=== PATIENT | male | born 1970 | race Caucasian/White ===

== ENCOUNTER 2021-10-08 11:00 | Emergency (ER) | payer SELFPAY ==
[2021-10-08 11:07] VITALS: PULSE 100; RESP 18; TEMP 37.1; O2SAT 97; BMI 31.4
--- NOTE | 2021-10-08 11:30 | CTR_ITS ---
PROCEDURE INFORMATION: Exam: CT Head Without Contrast Exam date and time: 10/08/2021 11:59 AM Age: 51 years old Clinical indication: Dizziness; Additional info: Light-headedness, diplopia TECHNIQUE: Imaging protocol: Computed tomography of the head without contrast. Radiation optimization: All CT scans at this facility use at least one of these dose optimization techniques: automated exposure control; mA and/or kV adjustment per patient size (includes targeted exams where dose is matched to clinical indication); or iterative reconstruction. COMPARISON: No relevant prior studies available. RADIATION DOSE METRICS: Total DLP (mGy-cm): 878.53 FINDINGS: Brain: No intracranial hemorrhage, edema or other acute abnormalities are seen in the brain. There is mild chronic atrophy with prominence of the ventricles and sulci. There is no mass effect or midline shift. Cerebral ventricles: There is mild ventricular prominence due to chronic atrophy. Paranasal sinuses: There is scattered mild mucosal thickening in the ethmoid sinuses. Mastoid air cells: Visualized mastoid air cells are well aerated. Bones/joints: Unremarkable. No acute fracture. Soft tissues: Unremarkable. CT/CT head wo con* [id number] IMPRESSION: No acute intracranial abnormality.
--- NOTE | 2021-10-08 11:30 | CTR_ITS ---
PROCEDURE INFORMATION: Exam: CT Angiography Head With Contrast, Arteriography Exam date and time: 10/08/2021 12:02 PM Age: 51 years old Clinical indication: Dizziness and giddiness; Additional info: Diplopia, light-headedness TECHNIQUE: Imaging protocol: Computed tomography angiography of the head with contrast. Exam focused on the arteries. 3D rendering (Not supervised by radiologist): MIP and/or 3D reconstructed images were created by the technologist. Radiation optimization: All CT scans at this facility use at least one of these dose optimization techniques: automated exposure control; mA and/or kV adjustment per patient size (includes targeted exams where dose is matched to clinical indication); or iterative reconstruction. Contrast material: OMNI 350; Contrast volume: 95 ml; Contrast route: INTRAVENOUS (IV); COMPARISON: CT head wo con* [id number] 10/08/2021 11:59 AM RADIATION DOSE METRICS: Total DLP (mGy-cm): 2381.55 FINDINGS: ANTERIOR CIRCULATION: Right internal carotid artery: Unremarkable. Intracranial segment is patent with no significant stenosis. No aneurysm. Right middle cerebral artery: Unremarkable. No occlusion or significant stenosis. No aneurysm. Right anterior cerebral artery: Unremarkable. No occlusion or significant stenosis. No aneurysm. Left internal carotid artery: Unremarkable. Intracranial segment is patent with no significant stenosis. No aneurysm. Left middle cerebral artery: Unremarkable. No occlusion or significant stenosis. No aneurysm. Left anterior cerebral artery: Unremarkable. No occlusion or significant stenosis. No aneurysm. POSTERIOR CIRCULATION: Right vertebral artery: Unremarkable. No occlusion or significant stenosis. No aneurysm. Left vertebral artery: Unremarkable. No occlusion or significant stenosis. No aneurysm. Basilar artery: Unremarkable. No occlusion or significant stenosis. No aneurysm. Right posterior cerebral artery: Unremarkable. No occlusion or significant stenosis. No aneurysm. Left posterior cerebral artery: Unremarkable. No occlusion or significant stenosis. No aneurysm. Brain: No definite mass, mass effect, or midline shift. Cerebral ventricles: No ventriculomegaly. Bones/joints: Unremarkable. No acute fracture. Soft tissues: Unremarkable. PROCEDURE INFORMATION: Exam: CT Angiography Neck With Contrast Exam date and time: 10/08/2021 12:02 PM Age: 51 years old Clinical indication: Dizziness and giddiness; Additional info: Diplopia, light-headedness TECHNIQUE: Imaging protocol: Computed tomography angiography of the neck with contrast. 3D rendering (Not supervised by radiologist): MIP and/or 3D reconstructed images were created by the technologist. Radiation optimization: All CT scans at this facility use at least one of these dose optimization techniques: automated exposure control; mA and/or kV adjustment per patient size (includes targeted exams where dose is matched to clinical indication); or iterative reconstruction. Contrast material: OMNI 350; Contrast volume: 95 ml; Contrast route: INTRAVENOUS (IV); COMPARISON: CT head wo con* [id number] 10/08/2021 11:59 AM RADIATION DOSE METRICS: Total DLP (mGy-cm): 2381.55 FINDINGS: Right common carotid artery: No stenosis. No dissection or occlusion. Right internal carotid artery: No stenosis of the extracranial segment. No dissection or occlusion. Right external carotid artery: No occlusion or stenosis of the origin. Left common carotid artery: No stenosis. No dissection or occlusion. Left internal carotid artery: No stenosis of the extracranial segment. No dissection or occlusion. Left external carotid artery: No occlusion or stenosis of the origin. Right vertebral artery: No stenosis. No dissection or occlusion. Left vertebral artery: No stenosis. No dissection or occlusion. Paranasal sinuses: There are multiple retention cysts in the maxillary sinuses and mucosal thickening. Thyroid: There are numerous nodules in the thyroid gland measuring up to 2.7 cm in the lower pole of the left lobe. Soft tissues: Normal. No significant soft tissue swelling. Bones/joints: No acute fracture. CT/CT angio headneck* [id number] IMPRESSION: No large vessel stenosis or occlusion. IMPRESSION: 1. No evidence of arterial stenosis or occlusion in the neck. 2. There are numerous thyroid nodules with the largest being 2.7 cm in the left lobe. 3. Follow-up non-emergent thyroid ultrasound is recommended. COMMENTS: Consistent with the [employer]'s Incidental Findings Committee white paper (J Am Leslye Radiol 2015): In patients aged 35 years and older with an incidental thyroid nodule equal to or greater than 1.[address], MRI or extrathyroidal US, further evaluation with dedicated thyroid US is recommended for patients with normal life expectancy and without comorbidities. For smaller nodules without suspicious features, no further evaluation or follow up is recommended. REFERENCES: NASCET CRITERIA. The degree of internal carotid artery stenosis is based on NASCET criteria. Normal is no stenosis. Mild is less than 50% stenosis. Moderate is 50-69% stenosis. Severe is 70% to 99% stenosis. Total occlusion is no detectable patent lumen.
--- NOTE | 2021-10-08 11:33 | ED_ITS ---
Documented by User: Jaime Malave MD 10/08/21 13:52 HPI - General Adult General: Chief complaint: Dizziness Stated complaint: Dizziness, strange vision, [place] Time Seen by Provider: 10/08/21 11:13 History of Present Illness: Patient is a 51-year-old male with a history of anxiety and depression, hypertension who presents the emergency room with complaints of diplopia and lightheadedness. Patient tells me that he has experienced 2 episodes of [place]opia in his [place]. Patient tells me the first episode lasted for 10 minutes and he was unable to walk on his own. He tells me that my eyes became crossed. Patient denies any scotoma, visual field deficit, amaurosis fugax, eye pain, or blurriness of vision. In addition, 50 minutes later, patient had another episode lasting for 5 minutes with similar symptoms. Patient denies any vertigo, focal neurological weakness, facial droop, slurring of speech, ear pain or neck pain. Patient says that he chronically has tinnitus denies that his symptoms has been worsening. Patient denies any other complaints, chest pain, shortness breath, palpitation, lightheadedness, vomiting, abdominal complaints, or complaints. Onset: earlier today Duration:lasting for a few minutes a time x 2 episodes Location:home Severity:moderate Associated symptoms: Reports nausea; Deny chest pain, dyspnea, rash, palpitations or vomiting Review of Systems Const: Denies: fever(s) or chills Eyes: Reports: other (+diplopia); Denies: change in vision ENMT: Denies: mouth pain Card: Denies: chest pain or palpitations Resp: Denies: dyspnea or non-productive cough GI: Reports: nausea; Denies: abdominal pain, vomiting or diarrhea : Denies: dysuria Musc: Denies: extremity pain Skin/Breast: Denies: rash or new lesions Neuro: Reports: other (+light-headedness during the episodes); Denies: weakness in extremities Psych: Reports: other (Normal mood) Remigio/Lymph: Denies: easy bruising PFS ED PFSH: Medical History ACL injury tear right and left knees Anxiety and depression Environmental and seasonal allergies Essential (primary) hypertension Surgical History 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 H/O wrist surgery right wrist History of neck surgery Family History Other Cancer Hypertension Denies family history of Diabetes Dementia Stroke Social History Smoking and tobacco status: current every day smoker Second hand smoke exposure: No Smoking risk assessment/counseling performed?: No Alcohol intake: current Alcohol intake frequency: 0-2 Drinks per Day Desire information about alcohol rehabilitation?: No Counseling given: No Desire information about substance/drug rehabilitation?: No Counseling given: No Adopted: No Caregiver/support person: No Lives independently: Yes Household members: none Housing: Other Marital status: Single Number of children: 0 service: No Current occupational status: employed History of recent travel: No Current gender identity: Male Physical Exam Const: COMMON NORMALS: alert HENMT: COMMON NORMALS: atraumatic HEAD & SCALP: atraumatic MOUTH: moist mucous membranes not abnormal Eye: COMMON NORMALS: EOMs intact bilaterally and conjunctivae normal CONJUNCTIVA: Yes conjunctivae normal Neck/C-Spine: COMMON NORMALS: full ROM and supple Resp: COMMON NORMALS: normal respiratory effort and clear to auscultation bilaterally AUSCULTATION: clear to auscultation bilaterally Cardio: COMMON NORMALS: regular rate RATE: regular rate GI: COMMON NORMALS: Soft to palpation and non-tender PALPATION: Yes Soft to palpation Extremity: COMMON NORMALS: full ROM Neuro: SENSORIUM/ORIENTATION: Yes alert MOTOR EXAM: No Abnormal motor strength present and Other motor observations present (no focal motor deficits) OTHER: Mental status? Awake, alert, and oriented to self, year, month, location, and situation.? Following simple axial and appendicular commands.? Has appropriate fund of knowledge, comprehension, and insight.? Able to recall and understands pertinent aspects of medical history and current treatment status.? ? Language? Speech is fluent without word-finding difficulties.? 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 ? Cranial nerves? 2,3,4,6: PERRL, EOMI with no nystagmus. 5: Intact sensation to light touch, symmetric? 7: Smile symmetrical, no facial droop.? 8: Hearing grossly intact.? 9,10: Normal palate movement.? 11: Normal strength in trapezius bilaterally 12: Tongue protrudes midline.? ? Motor examination? Normal bulk & tone. Strength as follows (R/L): Delts (5/5), Biceps (5/5), Triceps (5/5), Wrist ext (5/5), hip flexors (5/5), plantarflexors (5/5), dorsiflexors (5/5). Sensation? Light Touch: Grossly intact and equal in upper and lower extremities bilaterally? Romberg: Negative.? Distal joint position sense intact ? Coordination? Aevjgs-xt-ubne-finger movements intact without dysmetria or past-pointing.? Rapid fingertaps: preserved amplitude without decriment.? No tremor, myoclonus or truncal ataxia.? ? Gait/stance? Steady, normal narrow base gait with appropriate arm swing and turning.? Tandem gait without hesitation or loss of balance. Psych: COMMON NORMALS: speech normal SPEECH: Yes normal speech MOOD & AFFECT: Yes euthymic mood Course Vital Signs: Vital signs: Vital Signs Temperature 98.8 F 10/08/21 11:07 Pulse Rate 78 10/08/21 13:34 Respiratory Rate 18 10/08/21 13:34 Blood Pressure 149/107 10/08/21 13:34 Pulse Oximetry 96 10/08/21 13:34 [facility] - General Adult Medical Decision Making 51-year-old male presenting to emergency room with concerns for diplopia and lightheadedness. Patient is neurologically intact. CT brain and CT head neck negative for any acute finding. On reassessment, patient tolerated p.o. without difficulty. Patient received IVF reports no longer feeling lightheaded sensation. Is entirely unclear as to what happened today. Do not suspect any acute intracranial pathology at this time. Incidental findings of thyroid nodules discussed extensively with patient. Patient received a copy of the CT report with the documented findings. Patient is instructed to follow up urgently with specialists. I have given patient follow up with our director case management to be seen by our outpatient PCP for thyroid nodules and symptoms today. Patient aware of a call from our director case management to schedule for appointment(s) and verbalizes understanding of the importance of following up. I have given patient follow up with our director case management to be seen by our outpatient Neurology for diplopia. Patient aware of a call from our director case management to schedule for appointment(s) and verbalizes understanding of the importance of following up. Family request for prescription for elevated blood pressure. She is currently out of blood pressure medicine and has an established history of high blood pressure. Start patient on amlodipine 5 mg daily until he is seen by a primary care provider. Disposition: Discharge. Patient counseled regarding diagnostic impression, treatment plan. Patient given ED strict return precautions to return for continuation, worsening, or development of new symptoms. Instructed to f/u w/ PCP regarding symptoms today. Patient verbalized understanding. Lab Data : 10/08/21 11:39 10/08/21 11:[address] 10/08/21 11:30 IMPRESSION: No acute intracranial abnormality. Head/Neck CTA 10/08/21 11:30 IMPRESSION: No large vessel stenosis or occlusion. IMPRESSION: 1. No evidence of arterial stenosis or occlusion in the neck. 2. There are numerous thyroid nodules with the largest being 2.7 cm in the left lobe. 3. Follow-up non-emergent thyroid ultrasound is recommended. COMMENTS: Consistent with the [employer]'s Incidental Findings Committee white paper (J Am Leslye Radiol 2015): In patients aged 35 years and older with an incidental thyroid nodule equal to or greater than 1.[address], MRI or extrathyroidal US, further evaluation with dedicated thyroid US is recommended for patients with normal life expectancy and without comorbidities. For smaller nodules without suspicious features, no further evaluation or follow up is recommended. REFERENCES: NASCET CRITERIA. The degree of internal carotid artery stenosis is based on NASCET criteria. Normal is no stenosis. Mild is less than 50% stenosis. Moderate is 50-69% stenosis. Severe is 70% to 99% stenosis. Total occlusion is no detectable patent lumen. Laboratory Results WBC 14.4 10^3/uL (4.0-10.0) H 10/08/21 11:39 RBC 3.78 10^6/uL (4.1-5.3) L 10/08/21 11:39 Hgb 11.4 g/dL (11.7-16.6) L 10/08/21 11:39 Hct 34.5 % (42.0-52.0) L 10/08/21 11:39 MCV 91.3 fl (80-94) 10/08/21 11:39 MCH 30.2 pg (28.0-34.0) 10/08/21 11:39 MCHC 33.0 g/dL (30.0-36.0) 10/08/21 11:39 RDW 15.4 % (12.1-15.1) H 10/08/21 11:39 Plt Count 136 10^3/cmm (130-400) 10/08/21 11:39 MPV 10.7 fL (7.4-10.4) H 10/08/21 11:39 Neut % (Auto) 95.8 % 10/08/21 11:39 Lymph % (Auto) 0.7 % 10/08/21 11:39 Rhea % (Auto) 2.1 % 10/08/21 11:39 Eos % (Auto) 0.1 % 10/08/21 11:39 Baso % (Auto) 0.1 % 10/08/21 11:39 Neut # (Auto) 13.83 10^3/uL (1.8-7.7) H 10/08/21 11:39 Lymph # (Auto) 0.1 10^3/uL (0.8-4.8) L 10/08/21 11:39 Rhea # (Auto) 0.3 10^3/uL (0.2-0.9) 10/08/21 11:39 Eos # (Auto) 0.0 10^3/uL (0.0-0.8) 10/08/21 11:39 Baso # (Auto) 0.0 10^3/uL (0.0-0.1) 10/08/21 11:39 Nucleated RBC % (auto) 0 % 10/08/21 11:39 Nucleated RBCs # 0.0 /100WBC 10/08/21 11:39 Sodium 139 mmol/L (136-145) 10/08/21 11:39 Potassium 3.9 mmol/L (3.5-5.1) 10/08/21 11:39 Chloride 105 mmol/L (98-107) 10/08/21 11:39 Carbon Dioxide 24 mmol/L (22-29) 10/08/21 11:39 Anion Gap 13.9 (5-19) 10/08/21 11:39 BUN 19 mg/dL (6-20) 10/08/21 11:39 Creatinine 1.2 mg/dL (0.7-1.2) 10/08/21 11:39 GFR Calculation 63.8 mL/min (90-130) L 10/08/21 11:39 Glucose 116 mg/dL (65-115) H 10/08/21 11:39 Calculated Osmolality 291 mOsm/kg (285-295) 10/08/21 11:39 Calcium 9.8 mg/dL (8.5-10.5) 10/08/21 11:39 Imaging Data Other Imaging: Radiologist's impression: [place] [address] [place] Scan Report Signed Patient: Michoacano Wheat Unit #: [id number] : 1970 Age/Sex: 51 / M ADM Date: 10/08/21 Loc: ER Room/Bed: Attending Dr: Ordering Provider/Ordering MD: Jaime Malave MD Date of Service: 10/08/21 Procedure(s): CT angio headneck* [id number] Accession Number(s): [id number] Report Number: [id number] PROCEDURE INFORMATION: Exam: CT Angiography Head With Contrast, Arteriography Exam date and time: 10/08/2021 12:02 PM Age: 51 years old Clinical indication: Dizziness and giddiness; Additional info: Diplopia, light-headedness TECHNIQUE: Imaging protocol: Computed tomography angiography of the head with contrast. Exam focused on the arteries. 3D rendering (Not supervised by radiologist): MIP and/or 3D reconstructed images were created by the technologist. Radiation optimization: All CT scans at this facility use at least one of these dose optimization techniques: automated exposure control; mA and/or kV adjustment per patient size (includes targeted exams where dose is matched to clinical indication); or iterative reconstruction. Contrast material: OMNI 350; Contrast volume: 95 ml; Contrast route: INTRAVENOUS (IV);? COMPARISON: CT head wo con* [id number] 10/08/2021 11:59 AM RADIATION DOSE METRICS: Total DLP (mGy-cm): 2381.55 FINDINGS: ANTERIOR CIRCULATION: Right internal carotid artery: Unremarkable. Intracranial segment is patent with no significant stenosis. No aneurysm. Right middle cerebral artery: Unremarkable. No occlusion or significant stenosis. No aneurysm.? Right anterior cerebral artery: Unremarkable. No occlusion or significant stenosis. No aneurysm.? Left internal carotid artery: Unremarkable. Intracranial segment is patent with no significant stenosis. No aneurysm. Left middle cerebral artery: Unremarkable. No occlusion or significant stenosis. No aneurysm.? Left anterior cerebral artery: Unremarkable. No occlusion or significant stenosis. No aneurysm.? POSTERIOR CIRCULATION: Right vertebral artery: Unremarkable. No occlusion or significant stenosis. No aneurysm.? Left vertebral artery: Unremarkable. No occlusion or significant stenosis. No aneurysm.? Basilar artery: Unremarkable. No occlusion or significant stenosis. No aneurysm. Right posterior cerebral artery: Unremarkable. No occlusion or significant stenosis. No aneurysm.? Left posterior cerebral artery: Unremarkable. No occlusion or significant stenosis. No aneurysm.? Brain: No definite mass, mass effect, or midline shift. Cerebral ventricles: No ventriculomegaly. Bones/joints: Unremarkable. No acute fracture. Soft tissues: Unremarkable. PROCEDURE INFORMATION: Exam: CT Angiography Neck With Contrast Exam date and time: 10/08/2021 12:02 PM Age: 51 years old Clinical indication: Dizziness and giddiness; Additional info: Diplopia, light-headedness TECHNIQUE: Imaging protocol: Computed tomography angiography of the neck with contrast. 3D rendering (Not supervised by radiologist): MIP and/or 3D reconstructed images were created by the technologist. Radiation optimization: All CT scans at this facility use at least one of these dose optimization techniques: automated exposure control; mA and/or kV adjustment per patient size (includes targeted exams where dose is matched to clinical indication); or iterative reconstruction. Contrast material: OMNI 350; Contrast volume: 95 ml; Contrast route: INTRAVENOUS (IV);? COMPARISON: CT head wo con* [id number] 10/08/2021 11:59 AM RADIATION DOSE METRICS: Total DLP (mGy-cm): 2381.55 FINDINGS: Right common carotid artery: No stenosis. No dissection or occlusion. Right internal carotid artery: No stenosis of the extracranial segment. No dissection or occlusion. Right external carotid artery: No occlusion or stenosis of the origin.? Left common carotid artery: No stenosis. No dissection or occlusion. Left internal carotid artery: No stenosis of the extracranial segment. No dissection or occlusion. Left external carotid artery: No occlusion or stenosis of the origin.? Right vertebral artery: No stenosis. No dissection or occlusion. Left vertebral artery: No stenosis. No dissection or occlusion. Paranasal sinuses: There are multiple retention cysts in the maxillary sinuses and mucosal thickening. Thyroid: There are numerous nodules in the thyroid gland measuring up to 2.7 cm in the lower pole of the left lobe. Soft tissues: Normal. No significant soft tissue swelling. Bones/joints: No acute fracture. CT/CT angio headneck* [id number] IMPRESSION: No large vessel stenosis or occlusion. ? ? IMPRESSION: 1. No evidence of arterial stenosis or occlusion in the neck. 2. There are numerous thyroid nodules with the largest being 2.7 cm in the left lobe. 3. Follow-up non-emergent thyroid ultrasound is recommended. ? COMMENTS: Consistent with the [employer]'s Incidental Findings Committee white paper (J Am Leslye Radiol 2015): In patients aged 35 years and older with an incidental thyroid nodule equal to or greater than 1.[address], MRI or extrathyroidal US, further evaluation with dedicated thyroid US is recommended for patients with normal life expectancy and without comorbidities. For smaller nodules without suspicious features, no further evaluation or follow up is recommended. ? REFERENCES: NASCET CRITERIA. The degree of internal carotid artery stenosis is based on NASCET criteria. Normal is no stenosis. Mild is less than 50% stenosis. Moderate is 50-69% stenosis. Severe is 70% to 99% stenosis. Total occlusion is no detectable patent lumen. ? Dictated By: Pito Munguia Signed By: Pito Munguia Signed Date/Time: 10/08/21 1308 DD/ [address] [address] [address] Scan Report Signed Patient: Michoacano Wheat Unit #: [id number] : 1970 Age/Sex: 51 / M ADM Date: 10/08/21 Loc: ER Room/Bed: Attending Dr: Ordering Provider/Ordering MD: Jaime Malave MD Date of Service: 10/08/21 Procedure(s): CT head wo con* [id number] Accession Number(s): [id number] Report Number: [id number] PROCEDURE INFORMATION: Exam: CT Head Without Contrast Exam date and time: 10/08/2021 11:59 AM Age: 51 years old Clinical indication: Dizziness; Additional info: Light-headedness, diplopia TECHNIQUE: Imaging protocol: Computed tomography of the head without contrast. Radiation optimization: All CT scans at this facility use at least one of these dose optimization techniques: automated exposure control; mA and/or kV adjustment per patient size (includes targeted exams where dose is matched to clinical indication); or iterative reconstruction. COMPARISON: No relevant prior studies available. RADIATION DOSE METRICS: Total DLP (mGy-cm): 878.53 FINDINGS: Brain: No intracranial hemorrhage, edema or other acute abnormalities are seen in the brain. There is mild chronic atrophy with prominence of the ventricles and sulci. There is no mass effect or midline shift. Cerebral ventricles: There is mild ventricular prominence due to chronic atrophy. Paranasal sinuses: There is scattered mild mucosal thickening in the ethmoid sinuses. Mastoid air cells: Visualized mastoid air cells are well aerated. Bones/joints: Unremarkable. No acute fracture. Soft tissues: Unremarkable. CT/CT head wo con* [id number] IMPRESSION: No acute intracranial abnormality. ? Dictated By: Pito Munguia Signed By: Pito Munguia Signed Date/Time: 10/08/21 1300 DD/ 1159 EKG Data EKG 1: Computer generated interpretation: Head CT 10/08/21 11:30 IMPRESSION: No acute intracranial abnormality. Head/Neck CTA 10/08/21 11:30 IMPRESSION: No large vessel stenosis or occlusion. IMPRESSION: 1. No evidence of arterial stenosis or occlusion in the neck. 2. There are numerous thyroid nodules with the largest being 2.7 cm in the left lobe. 3. Follow-up non-emergent thyroid ultrasound is recommended. COMMENTS: Consistent with the [employer]'s Incidental Findings Committee white paper (J Am Leslye Radiol 2015): In patients aged 35 years and older with an incidental thyroid nodule equal to or greater than 1.[address], MRI or extrathyroidal US, further evaluation with dedicated thyroid US is recommended for patients with normal life expectancy and without comorbidities. For smaller nodules without suspicious features, no further evaluation or follow up is recommended. REFERENCES: NASCET CRITERIA. The degree of internal carotid artery stenosis is based on NASCET criteria. Normal is no stenosis. Mild is less than 50% stenosis. Moderate is 50-69% stenosis. Severe is 70% to 99% stenosis. Total occlusion is no detectable patent lumen. Discharge Plan Discharge Patient Disposition: Home Clinical Impression: Alteration in vision Condition: Stable Prescriptions: New amlodipine 5 mg tablet 5 mg PO DAILY 14 Days Qty: 14 0RF No Action lisinopril 5 mg tablet 5 mg PO DAILY Qty: 30 5RF Rx Instructions: Dose decreased bupropion HCl [Wellbutrin SR] 100 mg tablet sustained-release 12 hr 100 mg PO QAM Qty: 30 5RF fluoxetine [Prozac] 20 mg capsule 20 mg PO BID Qty: 60 2RF Hold Instructions: Patient No Longer Taking Rx Instructions: administer in the morning and at noon/midday Discharge Orders: Discharge ED (Routine); Ordered 10/08/21 Ordered By: Jaime Malave Referrals: Keiry Donis, JUVENALC [Primary Care Provider] - Discharge Diet: Advance as tolerated Discharge Activity: Increase activity as tolerated Activity Restrictions/Additional Instructions: Follow-up with your primary care provider for further evaluation of thyroid nodules. Come back to the emergency room if any weakness in the arms legs, facial droop, double vision, visual blindness, or any new extremity complaints. Our director case management will have you follow-up with a primary doctor and and a neurologist in the next few days. You would be expected to have a phone call with our director case management who will put you on the schedule. You can expect a call from us in the next 2-3 days. If you don't hear from us, call us back in the emergency room at [phone]. Here's a copy of your CT report: [employer] [address] [address] [address] Scan Report Signed Patient: Michoacano Wheat Unit #: [id number] : 1970 Age/Sex: 51 / M ADM Date: 10/08/21 Loc: ER Room/Bed: Attending Dr: Ordering Provider/Ordering MD: Jaime Malave MD Date of Service: 10/08/21 Procedure(s): CT angio headneck* [id number] Accession Number(s): [id number] Report Number: [id number] PROCEDURE INFORMATION: Exam: CT Angiography Head With Contrast, Arteriography Exam date and time: 10/08/2021 12:02 PM Age: 51 years old Clinical indication: Dizziness and giddiness; Additional info: Diplopia, light-headedness TECHNIQUE: Imaging protocol: Computed tomography angiography of the head with contrast. Exam focused on the arteries. 3D rendering (Not supervised by radiologist): MIP and/or 3D reconstructed images were created by the technologist. Radiation optimization: All CT scans at this facility use at least one of these dose optimization techniques: automated exposure control; mA and/or kV adjustment per patient size (includes targeted exams where dose is matched to clinical indication); or iterative reconstruction. Contrast material: OMNI 350; Contrast volume: 95 ml; Contrast route: INTRAVENOUS (IV);? COMPARISON: CT head wo con* [id number] 10/08/2021 11:59 AM RADIATION DOSE METRICS: Total DLP (mGy-cm): 2381.55 FINDINGS: ANTERIOR CIRCULATION: Right internal carotid artery: Unremarkable. Intracranial segment is patent with no significant stenosis. No aneurysm. Right middle cerebral artery: Unremarkable. No occlusion or significant stenosis. No aneurysm.? Right anterior cerebral artery: Unremarkable. No occlusion or significant stenosis. No aneurysm.? Left internal carotid artery: Unremarkable. Intracranial segment is patent with no significant stenosis. No aneurysm. Left middle cerebral artery: Unremarkable. No occlusion or significant stenosis. No aneurysm.? Left anterior cerebral artery: Unremarkable. No occlusion or significant stenosis. No aneurysm.? POSTERIOR CIRCULATION: Right vertebral artery: Unremarkable. No occlusion or significant stenosis. No aneurysm.? Left vertebral artery: Unremarkable. No occlusion or significant stenosis. No aneurysm.? Basilar artery: Unremarkable. No occlusion or significant stenosis. No aneurysm. Right posterior cerebral artery: Unremarkable. No occlusion or significant stenosis. No aneurysm.? Left posterior cerebral artery: Unremarkable. No occlusion or significant stenosis. No aneurysm.? Brain: No definite mass, mass effect, or midline shift. Cerebral ventricles: No ventriculomegaly. Bones/joints: Unremarkable. No acute fracture. Soft tissues: Unremarkable. PROCEDURE INFORMATION: Exam: CT Angiography Neck With Contrast Exam date and time: 10/08/2021 12:02 PM Age: 51 years old Clinical indication: Dizziness and giddiness; Additional info: Diplopia, light-headedness TECHNIQUE: Imaging protocol: Computed tomography angiography of the neck with contrast. 3D rendering (Not supervised by radiologist): MIP and/or 3D reconstructed images were created by the technologist. Radiation optimization: All CT scans at this facility use at least one of these dose optimization techniques: automated exposure control; mA and/or kV adjustment per patient size (includes targeted exams where dose is matched to clinical indication); or iterative reconstruction. Contrast material: OMNI 350; Contrast volume: 95 ml; Contrast route: INTRAVENOUS (IV);? COMPARISON: CT head wo con* [id number] 10/08/2021 11:59 AM RADIATION DOSE METRICS: Total DLP (mGy-cm): 2381.55 FINDINGS: Right common carotid artery: No stenosis. No dissection or occlusion. Right internal carotid artery: No stenosis of the extracranial segment. No dissection or occlusion. Right external carotid artery: No occlusion or stenosis of the origin.? Left common carotid artery: No stenosis. No dissection or occlusion. Left internal carotid artery: No stenosis of the extracranial segment. No dissection or occlusion. Left external carotid artery: No occlusion or stenosis of the origin.? Right vertebral artery: No stenosis. No dissection or occlusion. Left vertebral artery: No stenosis. No dissection or occlusion. Paranasal sinuses: There are multiple retention cysts in the maxillary sinuses and mucosal thickening. Thyroid: There are numerous nodules in the thyroid gland measuring up to 2.7 cm in the lower pole of the left lobe. Soft tissues: Normal. No significant soft tissue swelling. Bones/joints: No acute fracture. CT/CT angio headneck* [id number] IMPRESSION: No large vessel stenosis or occlusion. ? ? IMPRESSION: 1. No evidence of arterial stenosis or occlusion in the neck. 2. There are numerous thyroid nodules with the largest being 2.7 cm in the left lobe. 3. Follow-up non-emergent thyroid ultrasound is recommended. ? COMMENTS: Consistent with the [employer]'s Incidental Findings Committee white paper (J Am Leslye Radiol 2015): In patients aged 35 years and older with an incidental thyroid nodule equal to or greater than 1.[address], MRI or extrathyroidal US, further evaluation with dedicated thyroid US is recommended for patients with normal life expectancy and without comorbidities. For smaller nodules without suspicious features, no further evaluation or follow up is recommended. ? REFERENCES: NASCET CRITERIA. The degree of internal carotid artery stenosis is based on NASCET criteria. Normal is no stenosis. Mild is less than 50% stenosis. Moderate is 50-69% stenosis. Severe is 70% to 99% stenosis. Total occlusion is no detectable patent lumen. ? Dictated By: Pito Munguia Signed By: Pito Munguia Signed Date/Time: 10/08/21 1308 DD/ 1202 Stand Alone Forms: Work/School Release Coding Level of Care Code ED Singer Songwriter for Chg Fwd Exam Comprehensive Documented by User: Tiffanie Rahman MD 10/08/21 11:55 HPI - General Adult General: Chief complaint: Dizziness Stated complaint: Dizziness, strange vision, [place] Time Seen by Provider: 10/08/21 11:13 [facility] ED PFSH: Medical History ACL injury tear right and left knees Anxiety and depression Environmental and seasonal allergies Essential (primary) hypertension Surgical History 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 H/O wrist surgery right wrist History of neck surgery Family History Other Cancer Hypertension Denies family history of Diabetes Dementia Stroke Social History Smoking and tobacco status: current every day smoker Second hand smoke exposure: No Smoking risk assessment/counseling performed?: No Alcohol intake: current Alcohol intake frequency: 0-2 Drinks per Day Desire information about alcohol rehabilitation?: No Counseling given: No Desire information about substance/drug rehabilitation?: No Counseling given: No Adopted: No Caregiver/support person: No Lives independently: Yes Household members: none Housing: Other Marital status: Single Number of children: 0 service: No Current occupational status: employed History of recent travel: No Current gender identity: Male Course Vital Signs: Vital signs: Vital Signs Temperature 98.8 F 10/08/21 11:07 Pulse Rate 78 10/08/21 13:34 Respiratory Rate 18 10/08/21 13:34 Blood Pressure 149/107 10/08/21 13:34 Pulse Oximetry 96 10/08/21 13:34 [facility] - General Adult Lab Data : 10/08/21 11:39 10/08/21 11:[address] 10/08/21 11:30 IMPRESSION: No acute intracranial abnormality. Head/Neck CTA 10/08/21 11:30 IMPRESSION: No large vessel stenosis or occlusion. IMPRESSION: 1. No evidence of arterial stenosis or occlusion in the neck. 2. There are numerous thyroid nodules with the largest being 2.7 cm in the left lobe. 3. Follow-up non-emergent thyroid ultrasound is recommended. COMMENTS: Consistent with the [employer]'s Incidental Findings Committee white paper (J Am Leslye Radiol 2015): In patients aged 35 years and older with an incidental thyroid nodule equal to or greater than 1.[address], MRI or extrathyroidal US, further evaluation with dedicated thyroid US is recommended for patients with normal life expectancy and without comorbidities. For smaller nodules without suspicious features, no further evaluation or follow up is recommended. REFERENCES: NASCET CRITERIA. The degree of internal carotid artery stenosis is based on NASCET criteria. Normal is no stenosis. Mild is less than 50% stenosis. Moderate is 50-69% stenosis. Severe is 70% to 99% stenosis. Total occlusion is no detectable patent lumen. Laboratory Results WBC 14.4 10^3/uL (4.0-10.0) H 10/08/21 11:39 RBC 3.78 10^6/uL (4.1-5.3) L 10/08/21 11:39 Hgb 11.4 g/dL (11.7-16.6) L 10/08/21 11:39 Hct 34.5 % (42.0-52.0) L 10/08/21 11:39 MCV 91.3 fl (80-94) 10/08/21 11:39 MCH 30.2 pg (28.0-34.0) 10/08/21 11:39 MCHC 33.0 g/dL (30.0-36.0) 10/08/21 11:39 RDW 15.4 % (12.1-15.1) H 10/08/21 11:39 Plt Count 136 10^3/cmm (130-400) 10/08/21 11:39 MPV 10.7 fL (7.4-10.4) H 10/08/21 11:39 Neut % (Auto) 95.8 % 10/08/21 11:39 Lymph % (Auto) 0.7 % 10/08/21 11:39 Rhea % (Auto) 2.1 % 10/08/21 11:39 Eos % (Auto) 0.1 % 10/08/21 11:39 Baso % (Auto) 0.1 % 10/08/21 11:39 Neut # (Auto) 13.83 10^3/uL (1.8-7.7) H 10/08/21 11:39 Lymph # (Auto) 0.1 10^3/uL (0.8-4.8) L 10/08/21 11:39 Rhea # (Auto) 0.3 10^3/uL (0.2-0.9) 10/08/21 11:39 Eos # (Auto) 0.0 10^3/uL (0.0-0.8) 10/08/21 11:39 Baso # (Auto) 0.0 10^3/uL (0.0-0.1) 10/08/21 11:39 Nucleated RBC % (auto) 0 % 10/08/21 11:39 Nucleated RBCs # 0.0 /100WBC 10/08/21 11:39 Sodium 139 mmol/L (136-145) 10/08/21 11:39 Potassium 3.9 mmol/L (3.5-5.1) 10/08/21 11:39 Chloride 105 mmol/L (98-107) 10/08/21 11:39 Carbon Dioxide 24 mmol/L (22-29) 10/08/21 11:39 Anion Gap 13.9 (5-19) 10/08/21 11:39 BUN 19 mg/dL (6-20) 10/08/21 11:39 Creatinine 1.2 mg/dL (0.7-1.2) 10/08/21 11:39 GFR Calculation 63.8 mL/min (90-130) L 10/08/21 11:39 Glucose 116 mg/dL (65-115) H 10/08/21 11:39 Calculated Osmolality 291 mOsm/kg (285-295) 10/08/21 11:39 Calcium 9.8 mg/dL (8.5-10.5) 10/08/21 11:39 EKG Data EKG 1: I personally reviewed and interpreted this EKG as follows: EKG interpretation date: 10/08/21 EKG interpretation time: 10:45 Interpretation: sins gloria hr [address] or t wave abnormalities qrs 125 qtc 464 Computer generated interpretation: Head CT 10/08/21 11:30 IMPRESSION: No acute intracranial abnormality. Head/Neck CTA 10/08/21 11:30 IMPRESSION: No large vessel stenosis or occlusion. IMPRESSION: 1. No evidence of arterial stenosis or occlusion in the neck. 2. There are numerous thyroid nodules with the largest being 2.7 cm in the left lobe. 3. Follow-up non-emergent thyroid ultrasound is recommended. COMMENTS: Consistent with the [employer]'s Incidental Findings Committee white paper (J Am Leslye Radiol 2015): In patients aged 35 years and older with an incidental thyroid nodule equal to or greater than 1.[address], MRI or extrathyroidal US, further evaluation with dedicated thyroid US is recommended for patients with normal life expectancy and without comorbidities. For smaller nodules without suspicious features, no further evaluation or follow up is recommended. REFERENCES: NASCET CRITERIA. The degree of internal carotid artery stenosis is based on NASCET criteria. Normal is no stenosis. Mild is less than 50% stenosis. Moderate is 50-69% stenosis. Severe is 70% to 99% stenosis. Total occlusion is no detectable patent lumen. Discharge Plan Discharge Patient Disposition: Home Clinical Impression: Alteration in vision Condition: Stable Prescriptions: New amlodipine 5 mg tablet 5 mg PO DAILY 14 Days Qty: 14 0RF No Action lisinopril 5 mg tablet 5 mg PO DAILY Qty: 30 5RF Rx Instructions: Dose decreased bupropion HCl [Wellbutrin SR] 100 mg tablet sustained-release 12 hr 100 mg PO QAM Qty: 30 5RF fluoxetine [Prozac] 20 mg capsule 20 mg PO BID Qty: 60 2RF Hold Instructions: Patient No Longer Taking Rx Instructions: administer in the morning and at noon/midday Discharge Orders: Discharge ED (Routine); Ordered 10/08/21 Ordered By: Jaime Malave Referrals: Keiry Donis, MOLD MAINTENANCE TECHNICIAN-C [Primary Care Provider] - Discharge Diet: Advance as tolerated Discharge Activity: Increase activity as tolerated Activity Restrictions/Additional Instructions: Follow-up with your primary care provider for further evaluation of thyroid nodules. Come back to the emergency room if any weakness in the arms legs, facial droop, double vision, visual blindness, or any new extremity complaints. Our director case management will have you follow-up with a primary doctor and and a neurologist in the next few days. You would be expected to have a phone call with our director case management who will put you on the schedule. You can expect a call from us in the next 2-3 days. If you don't hear from us, call us back in the emergency room at [phone]. Here's a copy of your CT report: [address] [address] [address] Scan Report Signed Patient: Michoacano Wheat Unit #: [id number] : 1970 Age/Sex: 51 / M ADM Date: 10/08/21 Loc: ER Room/Bed: Attending Dr: Ordering Provider/Ordering MD: Jaime Malave MD Date of Service: 10/08/21 Procedure(s): CT angio headneck* [id number] Accession Number(s): [id number] Report Number: [id number] PROCEDURE INFORMATION: Exam: CT Angiography Head With Contrast, Arteriography Exam date and time: 10/08/2021 12:02 PM Age: 51 years old Clinical indication: Dizziness and giddiness; Additional info: Diplopia, light-headedness TECHNIQUE: Imaging protocol: Computed tomography angiography of the head with contrast. Exam focused on the arteries. 3D rendering (Not supervised by radiologist): MIP and/or 3D reconstructed images were created by the technologist. Radiation optimization: All CT scans at this facility use at least one of these dose optimization techniques: automated exposure control; mA and/or kV adjustment per patient size (includes targeted exams where dose is matched to clinical indication); or iterative reconstruction. Contrast material: OMNI 350; Contrast volume: 95 ml; Contrast route: INTRAVENOUS (IV);? COMPARISON: CT head wo con* [id number] 10/08/2021 11:59 AM RADIATION DOSE METRICS: Total DLP (mGy-cm): 2381.55 FINDINGS: ANTERIOR CIRCULATION: Right internal carotid artery: Unremarkable. Intracranial segment is patent with no significant stenosis. No aneurysm. Right middle cerebral artery: Unremarkable. No occlusion or significant stenosis. No aneurysm.? Right anterior cerebral artery: Unremarkable. No occlusion or significant stenosis. No aneurysm.? Left internal carotid artery: Unremarkable. Intracranial segment is patent with no significant stenosis. No aneurysm. Left middle cerebral artery: Unremarkable. No occlusion or significant stenosis. No aneurysm.? Left anterior cerebral artery: Unremarkable. No occlusion or significant stenosis. No aneurysm.? POSTERIOR CIRCULATION: Right vertebral artery: Unremarkable. No occlusion or significant stenosis. No aneurysm.? Left vertebral artery: Unremarkable. No occlusion or significant stenosis. No aneurysm.? Basilar artery: Unremarkable. No occlusion or significant stenosis. No aneurysm. Right posterior cerebral artery: Unremarkable. No occlusion or significant stenosis. No aneurysm.? Left posterior cerebral artery: Unremarkable. No occlusion or significant stenosis. No aneurysm.? Brain: No definite mass, mass effect, or midline shift. Cerebral ventricles: No ventriculomegaly. Bones/joints: Unremarkable. No acute fracture. Soft tissues: Unremarkable. PROCEDURE INFORMATION: Exam: CT Angiography Neck With Contrast Exam date and time: 10/08/2021 12:02 PM Age: 51 years old Clinical indication: Dizziness and giddiness; Additional info: Diplopia, light-headedness TECHNIQUE: Imaging protocol: Computed tomography angiography of the neck with contrast. 3D rendering (Not supervised by radiologist): MIP and/or 3D reconstructed images were created by the technologist. Radiation optimization: All CT scans at this facility use at least one of these dose optimization techniques: automated exposure control; mA and/or kV adjustment per patient size (includes targeted exams where dose is matched to clinical indication); or iterative reconstruction. Contrast material: OMNI 350; Contrast volume: 95 ml; Contrast route: INTRAVENOUS (IV);? COMPARISON: CT head wo con* [id number] 10/08/2021 11:59 AM RADIATION DOSE METRICS: Total DLP (mGy-cm): 2381.55 FINDINGS: Right common carotid artery: No stenosis. No dissection or occlusion. Right internal carotid artery: No stenosis of the extracranial segment. No dissection or occlusion. Right external carotid artery: No occlusion or stenosis of the origin.? Left common carotid artery: No stenosis. No dissection or occlusion. Left internal carotid artery: No stenosis of the extracranial segment. No dissection or occlusion. Left external carotid artery: No occlusion or stenosis of the origin.? Right vertebral artery: No stenosis. No dissection or occlusion. Left vertebral artery: No stenosis. No dissection or occlusion. Paranasal sinuses: There are multiple retention cysts in the maxillary sinuses and mucosal thickening. Thyroid: There are numerous nodules in the thyroid gland measuring up to 2.7 cm in the lower pole of the left lobe. Soft tissues: Normal. No significant soft tissue swelling. Bones/joints: No acute fracture. CT/CT angio headneck* [id number] IMPRESSION: No large vessel stenosis or occlusion. ? ?
[2021-10-08] MEDS: acetaminophen 500 mg Tablet PO (11:36)
[2021-10-08] MEDS: sodium chloride 0.9% 1,000 ML 999 ML IV (11:36)
[2021-10-08 11:56] LABS: Basophils % 0.1 %; Eosinophils % 0.1 %; Hematocrit 34.5 % (42.0-52.0); Hemoglobin 11.4 g/dL (11.7-16.6); Lymphocytes # 0.1 10^3/uL (0.8-4.8); Lymphocytes % 0.7 %; Mean Corpuscular Hemoglobin 30.2 pg (28.0-34.0); Mean Corpuscular Volume 91.3 fl (80-94); Mean Platelet Volume 10.7 fL (7.4-10.4); Monocytes # 0.3 10^3/uL (0.2-0.9); Monocytes % 2.1 %; Neutrophils # 13.83 10^3/uL (1.8-7.7); Neutrophils % 95.8 %; Nucleated Red Blood Cells % 0 %; Platelet Count 136 10^3/cmm (130-400); Red Blood Count 3.78 10^6/uL (4.1-5.3); Red Cell Distribution Width 15.4 % (12.1-15.1); White Blood Count 14.4 10^3/uL (4.0-10.0)
[2021-10-08] MEDS: iohexol 350 mg/mL 100 mL Btl IV (12:08)
[2021-10-08 12:17] LABS: Blood Urea Nitrogen 19 mg/dL (6-20); Calcium 9.8 mg/dL (8.5-10.5); Carbon Dioxide 24 mmol/L (22-29); Chloride 105 mmol/L (98-107); Glomerular Filtration Rate 63.8 mL/min (90-130); Glucose 116 mg/dL (65-115); Osmolality Calculated 291 mOsm/kg (285-295); Sodium 139 mmol/L (136-145)
[2021-10-08 12:38] LABS: Anion Gap 13.9 (5-19); Potassium 3.9 mmol/L (3.5-5.1)
[2021-10-08 13:34] VITALS: BP 149/107; PULSE 78; RESP 18; O2SAT 96
[2021-10-08 14:00] VITALS: BP 149/107; PULSE 79; RESP 18; O2SAT 98
--- NOTE | 2021-10-09 14:11 | DCPLANNER ---
Addendum entered by Amirah Griffin 10/20/21 09:17: Patient had a follow up appointment scheduled with Dr. Flores at [facility] - patient did attend Original Note: sales and production manager had message to speak with patient about getting established with a primary care physician and to let patient know that a referral for neurology had been given to counseling case manager. sales and production manager spoke with patient, he stated that he did want counseling case manager to get patient established with a primary care physician. Patient stated that he wanted a male physician, patient stated that he did not want counseling case manager to refer him to neurology at this time. Patient stated that he wanted to follow up with primary care and see what the primary care physician recommends, and if the primary care recommends that patient follows up with neurology, than the primary care can refer patient to neurology. sales and production manager called [facility], spoke with Gudelia, gave clinic patients information. A follow up appointment is scheduled for Monday, October 11, 2021 at 1:[address] Albrecht. sales and production manager called patient and gave him the appointment information.
== END 2021-10-08 14:02 | disposition home or self-care (01) ==
PROVIDERS: Emergency Provider Emergency Medicine; PCP Nurse Practitioner
DX: H53.9 Unspecified visual disturbance (principal); I10 Essential (primary) hypertension; F17.210 Nicotine dependence, cigarettes, uncomplicated
CPT/HCPCS: 70450; 70496; 70498; 80048; 85025; 96360; 99284; J7030; Q9967

== ENCOUNTER 2021-10-11 | Outpatient (CLI) | payer SELFPAY | END 2021-10-11 23:59 | disposition home or self-care (01) | LOC: RAD 02-13 14:23 | PROVIDERS: PCP Family Medicine; Visit Provider Family Medicine | DX: H54.7 Unspecified visual loss (principal); F41.9 Anxiety disorder, unspecified; F32.9 Major depressive disorder, single episode, unspecified; I10 Essential (primary) hypertension; Z76.89 Persons encountering health services in other specified circumstances; Z13.220 Encounter for screening for lipoid disorders; Z13.6 Encounter for screening for cardiovascular disorders; E04.1 Nontoxic single thyroid nodule | CPT/HCPCS: 80048; 81000; 84153; 84439; 84443; 85025 ==

== ENCOUNTER → 2021-12-14 18:23 | Outpatient (BNVA) | payer SELFPAY | PROVIDERS: PCP Family Medicine; Visit Provider Family Medicine | DX: R50.9 Fever, unspecified (principal); R52 Pain, unspecified | CPT/HCPCS: 80053; 85007; 85025; 86618; 86666; 86757; 86803; 87806 ==

== ENCOUNTER 2021-12-22 21:49 | Emergency (ER) | payer SELFPAY ==
--- NOTE | 2021-12-22 21:52 | ECG_ITS ---
[facility] Test Date: 2021-12-22 Pat Name: Michoacano Wheat Department: Room: Gender: Male [place]id[place] Man: : 1970 Requested By: Tiffanie Rahman Order Number: [id number] Aj MD: Ilya Packer M.D. Measurements Intervals [place] Rate: 109 P: 42 CT: 152 QRS: 26 QRSD: 97 T: 26 QT: 323 QTc: 436 Interpretive Statements SINUS TACHYCARDIA POSSIBLE RIGHT VENTRICULAR CONDUCTION DELAY [RSR (QR) IN V1/V2] No previous ECG available for comparison Electronically Signed On 12-23-2021 0:28:43 CDT by Ilya Packer M.D. [email or web address] [id number] f
--- NOTE | 2021-12-22 21:52 | XRR_ITS ---
PROCEDURE INFORMATION: Exam: XR Chest Exam date and time: 12/22/2021 10:00 PM Age: 51 years old Clinical indication: Chest wall pain; Additional info: Cp TECHNIQUE: Imaging protocol: XR of the chest. Views: 1 view. COMPARISON: CT angio headneck* [id number] 10/08/2021 12:02 PM FINDINGS: Lungs: Mildly hyperaerated lungs consistent with deep inspiratory effort vs reactive airway disease vs mild COPD . Pleural spaces: Unremarkable. No pleural effusion. No pneumothorax. Heart/Mediastinum: Unremarkable. No cardiomegaly. Bones/joints: Unremarkable. XR/XR chest 1V portable [id number] IMPRESSION: Mildly hyperaerated lungs consistent with deep inspiratory effort vs reactive airway disease vs mild COPD .
[2021-12-22 22:03] VITALS: BP 171/111; PULSE 112; RESP 17; TEMP 36.8; O2SAT 98; BMI 31.6
[2021-12-22 22:11] VITALS: BP 156/105; PULSE 105; RESP 16; O2SAT 98
--- NOTE | 2021-12-22 22:17 | ED_ITS ---
HPI - Chest Pain General: Chief Complaint: Chest Pain Stated Complaint: cp Time Seen by Provider: 12/22/21 22:12 Source: patient Mode of arrival: ambulatory Limitations: no limitations History of Present Illness: 51-year-old male states that he was out in his garage this evening roughly 7:00 and started having some chest pain. States it was a pressure type pain in his chest and his upper abdomen that radiated to his jaw and his back. He states that since then his pain has improved he states pain is currently a 1 out of 10 denies any shortness of breath has had some slight nausea no history of heart disease he is a smoker and has a history of high blood pressure. Associated symptoms: Deny abdominal pain, dyspnea, fever(s), nausea or vomiting Review of Systems Const: Denies: fever(s), chills, body aches or change in appetite Eyes: Denies: blurry vision or eye discomfort ENMT: Denies: throat pain or dental pain Card: Reports: chest pain Resp: Denies: dyspnea GI: Denies: abdominal pain, nausea, vomiting or diarrhea : Denies: dysuria Musc: Denies: neck pain or back pain Skin/Breast: Denies: rash Neuro: Denies: headache(s) Psych: Denies: depression Remigio/Lymph: Denies: easy bruising All/Imm: Denies: urticaria PFSH ED PFSH: Medical History ACL injury tear right and left knees Anxiety and depression Environmental and seasonal allergies Essential (primary) hypertension Surgical History 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 H/O wrist surgery right wrist History of neck surgery Family History Other Cancer Hypertension Denies family history of Diabetes Dementia Stroke Social History Smoking and tobacco status: current every day smoker Second hand smoke exposure: No Smoking risk assessment/counseling performed?: No Alcohol intake: current Alcohol intake frequency: 0-2 Drinks per Day Desire information about alcohol rehabilitation?: No Counseling given: No Desire information about substance/drug rehabilitation?: No Counseling given: No Adopted: No Caregiver/support person: No Lives independently: Yes Household members: none Housing: Other Marital status: Single Number of children: 0 service: No Current occupational status: employed History of recent travel: No Current gender identity: Male Physical Exam Const: COMMON NORMALS: no acute distress, patient oriented x3 and healthy appearing HENMT: COMMON NORMALS: normocephalic and atraumatic HEAD & SCALP: normocephalic and atraumatic Eye: COMMON NORMALS: Equal, round and reactive pupils present and EOMs intact bilaterally PUPIL: Yes Equal, round and reactive pupils present Neck/C-Spine: COMMON NORMALS: full ROM and supple Chest: COMMONS NORMALS: normal inspection of the chest and normal palpation of entire chest wall Resp: COMMON NORMALS: normal respiratory effort, No retractions, No use of accessory muscles and clear to auscultation bilaterally AUSCULTATION: clear to auscultation bilaterally Cardio: COMMON NORMALS: regular rhythm and No murmurs present (Cardio) RATE: tachycardic RHYTHM: regular rhythm GI: COMMON NORMALS: Normal to inspection, nondistended, normoactive bowel sounds present, Soft to palpation, non-tender and no masses PALPATION: Yes Soft to palpation Extremity: COMMON NORMALS: normal to inspection and full ROM Neuro: COMMON NORMALS: patient oriented x3, moves all extremities and no focal motor deficits Psych: COMMON NORMALS: mental status grossly normal, Normal thought process present and cooperative THOUGHT PROCESS: Normal thought process present Skin: COMMON NORMALS: no rashes or lesions noted and no wounds GENERAL SKIN EXAM: no rashes or lesions noted Course Vital Signs: Vital signs: Vital Signs Temperature 98.2 F 12/22/21 22:03 Pulse Rate 82 12/23/21 00:18 Respiratory Rate 16 12/23/21 00:18 Blood Pressure 132/87 12/23/21 00:18 Pulse Oximetry 98 12/23/21 00:18 MDM - Chest Pain Medical Decision Making Patient presents here with chest pain. His initial and repeat troponins here are both negative CT of the chest shows no signs of pulmonary embolism or aortic dissection. He has no signs of acute coronary syndrome here. Inform patient he needs to follow-up his PCP in 2 to 4 days and still likely needs an outpatient stress test. I informed if he has any more chest pain he is return to the ER immediately for further reevaluation. He understands and agrees to plan. Lab Data : 12/22/21 22:38 12/22/21 22:38 Radiology Impressions Chest X-Ray 12/22/21 21:52 IMPRESSION: Mildly hyperaerated lungs consistent with deep inspiratory effort vs reactive airway disease vs mild COPD . Chest CTA 12/22/21 23:00 IMPRESSION: No pulmonary embolus or aortic dissection. Laboratory Results WBC 15.4 10^3/uL (4.0-10.0) H 12/22/21 22:38 RBC 4.66 10^6/uL (4.1-5.3) 12/22/21 22:38 Hgb 15.6 g/dL (11.7-16.6) 12/22/21:38 Hct 42.0 % (42.0-52.0) 12/22/21 22:38 MCV 90.1 fl (80-94) 12/22/21 22:38 MCH 33.5 pg (28.0-34.0) 12/22/21:38 MCHC 37.1 g/dL (30.0-36.0) H 12/22/21 22:38 RDW 12.0 % (12.1-15.1) L 12/22/21 22:38 Plt Count 462 10^3/cmm (130-400) H 12/22/21 22:38 MPV 8.8 fL (7.4-10.4) 12/22/21 22:38 Lymph % (Auto) Not Reportable 12/22/21 22:38 [place] % (Auto) Not Reportable 12/22/21 22:38 Lymph # (Auto) Not Reportable 12/22/21 22:38 [place] # (Auto) Not Reportable 12/22/21 22:38 Total Counted 100 (0-100) 12/22/21 22:38 Atypical Lymphs % 4.0 % (0-5) 12/22/21 22:38 Absolute Neutrophils 6.0 10^3/cmm (1.4-6.5) 12/22/21 22:38 Segmented Neutrophils 39 % 12/22/21 22:38 Abs Segm Neuts (Man) 6.0 10/cmm (1.6-7.1) 12/22/21 22:38 Band Neutrophils 0.0 % 12/22/21 22:38 Abs Band Neuts (Man) 0.0 10^3/cmm (0.0-1.2) 12/22/21:38 Absolute Lymphocytes 7.4 10^3/cmm (1.2-3.4) H 12/22/21 22:38 Lymphocytes (Manual) 44 % 12/22/21:38 Monocytes (Manual) 11.0 % 12/22/21: Absolute Monocytes 1.7 10^3/cmm (0.1-0.6) H 12/22/21 22:38 Eosinophils (Manual) 2 % 12/22/21: Absolute Eosinophils 0.3 10^3/cmm (0.0-0.7) 12/22/21: Basophils (Manual) 0.0 % 12/22/21: Absolute Basophils 0.0 10^3/cmm (0.0-0.2) 12/22/21:38 Platelet Estimate Increased (Normal) 12/22/21:38 Rouleaux 1+ H 12/22/21 22:38 D-Dimer 0.71 ug/mIFEU (0-0.59) H 12/22/21 22:38 Sodium 135 mmol/L (136-145) L 12/22/21:38 Potassium 4.7 mmol/L (3.5-5.1) 12/22/21:38 Chloride 100 mmol/L (98-107) 12/22/21:38 Carbon Dioxide 23 mmol/L (22-29) 12/22/21:38 Anion Gap 16.7 (5-19) 12/22/21:38 BUN 18 mg/dL (6-20) 12/22/21:38 Creatinine 0.9 mg/dL (0.7-1.2) 12/22/21:38 GFR Calculation 89.0 mL/min (90-130) L 12/22/21: Glucose 125 mg/dL (65-115) H 12/22/21:38 Calculated Osmolality 283 mOsm/kg (285-295) L 12/22/21: Calcium 9.3 mg/dL (8.5-10.5) 12/22/21: Total Bilirubin 0.3 mg/dL (0.15-1.2) 12/22/21 22:38 AST 26 U/L (0-40) 12/22/21 22:38 ALT 67 U/L (0-41) H 12/22/21 22:38 Alkaline Phosphatase 130 IU/L (40-130) 12/22/21 22:38 Troponin T Baseline 8 ng/L (0-15) 12/22/21 22:38 Troponin T 120 Minute 10.27 ng/L (0-15) 12/23/21 00:12 Delta Troponin T 2.27 ABS# (0-10) 12/23/21 00:12 Total Protein 7.5 g/dL (6.6-8.7) 12/22/21 22:38 Albumin 4.4 g/dL (3.5-5.2) 12/22/21 22:38 Globulin 3.1 g/dL (1.3-4.6) 12/22/21 22:38 Lipase 59 U/L (13-60) 12/22/21 22:38 EKG Data EKG 1: I personally reviewed and interpreted this EKG as follows: EKG interpretation date: 12/22/21 EKG interpretation time: 21:55 Interpretation: sinus tach hr [address] or t wave abnormalities qrs 97 qtc 387 Discharge Plan Discharge Patient Disposition: Home Clinical Impression: Chest pain Condition: Stable Prescriptions: No Action amlodipine 5 mg tablet 5 mg PO DAILY 90 Days Qty: 90 2RF doxycycline hyclate 100 mg tablet 100 mg PO BID 10 Days Qty: 20 0RF Discharge Orders: Discharge ED (Routine); Ordered 12/23/21 Ordered By: Tiffanie Rahman Referrals: Joseph Flores DO [Primary Care Provider] - 1-3 days Discharge Diet: Advance as tolerated Discharge Activity: Resume usual activity Patient Instructions: Chest Pain (ED) Coding Level of Care Code ED Etl Database Developer for Lluviag Fwd Exam Comprehensive
[2021-12-22] MEDS: aspirin 81 mg Chew Tablet 324 MG PO (22:41)
[2021-12-22] MEDS: nitroglycerin 0.4 mg sublingual Tablet SUBLINGUAL (22:41)
[2021-12-22 22:43] LABS: Hemoglobin 15.6 g/dL (11.7-16.6); Mean Corpuscular HGB Conc 37.1 g/dL (30.0-36.0); Mean Corpuscular Hemoglobin 33.5 pg (28.0-34.0); Mean Corpuscular Volume 90.1 fl (80-94); Mean Platelet Volume 8.8 fL (7.4-10.4); Platelet Count 462 10^3/cmm (130-400); Red Blood Count 4.66 10^6/uL (4.1-5.3); White Blood Count 15.4 10^3/uL (4.0-10.0)
[2021-12-22 22:56] LABS: D Dimer 0.71 ug/mIFEU (0-0.59)
--- NOTE | 2021-12-22 23:00 | CTR_ITS ---
PROCEDURE INFORMATION: Exam: CTA Chest With Contrast Exam date and time: 12/22/2021 11:17 PM Age: 51 years old Clinical indication: Pain; Chest pressure; Patient HX: Elevated d dimer; Additional info: Cp TECHNIQUE: Imaging protocol: Computed tomographic angiography of the chest with contrast. 3D rendering (Not supervised by radiologist): MIP and/or 3D reconstructed images were created by the technologist. Radiation optimization: All CT scans at this facility use at least one of these dose optimization techniques: automated exposure control; mA and/or kV adjustment per patient size (includes targeted exams where dose is matched to clinical indication); or iterative reconstruction. Contrast material: OMNI 350; Contrast volume: 68 ml; Contrast route: INTRAVENOUS (IV); COMPARISON: CR (CHEST, ) 12/22/2021 10:00 PM RADIATION DOSE METRICS: Total DLP (mGy-cm): 543.06 FINDINGS: Pulmonary arteries: Normal. No pulmonary emboli. Aorta: Unremarkable. No aortic aneurysm. No aortic dissection. Lungs: Unremarkable. No consolidation. No masses. Pleural spaces: Unremarkable. No pneumothorax. No pleural effusion. Heart: Moderate calcified coronary artery disease. Lymph nodes: Unremarkable. No enlarged lymph nodes. Bones/joints: Unremarkable. No acute fracture. Soft tissues: Unremarkable. CT/CT angio chest PE protcl [id number] IMPRESSION: No pulmonary embolus or aortic dissection.
[2021-12-22 23:03] LABS: Alanine Aminotransferase 67 U/L (0-41); Albumin Level 4.4 g/dL (3.5-5.2); Alkaline Phosphatase 130 IU/L (40-130); Aspartate Amino Transferase 26 U/L (0-40); Blood Urea Nitrogen 18 mg/dL (6-20); Calcium 9.3 mg/dL (8.5-10.5); Carbon Dioxide 23 mmol/L (22-29); Chloride 100 mmol/L (98-107); Globulin 3.1 g/dL (1.3-4.6); Glucose 125 mg/dL (65-115); Lipase 59 U/L (13-60); Osmolality Calculated 283 mOsm/kg (285-295); Sodium 135 mmol/L (136-145); Total Bilirubin 0.3 mg/dL (0.15-1.2); Total Protein 7.5 g/dL (6.6-8.7)
[2021-12-22 23:04] LABS: Troponin(5th) Baseline 8 ng/L (0-15)
[2021-12-22 23:06] LABS: Anion Gap 16.7 (5-19); Potassium 4.7 mmol/L (3.5-5.1)
[2021-12-22 23:14] LABS: Segmented Neutrophils 39 %; Total Cells Counted 100 (0-100)
[2021-12-22 23:15] LABS: Absolute Eosinophils 0.3 10^3/cmm (0.0-0.7); Eosinophils 2 %; Lymphocytes 44 %; Lymphocytes Absolute 7.4 10^3/cmm (1.2-3.4); Monocytes Absolute 1.7 10^3/cmm (0.1-0.6)
[2021-12-22 23:16] LABS: Platelet Estimate Increased (Normal); Rouleau 1+
[2021-12-22] MEDS: iohexol 350 mg/mL 100 mL Btl IV (23:18)
[2021-12-23 00:18] VITALS: BP 132/87; PULSE 82; RESP 16; O2SAT 98
[2021-12-23 00:36] LABS: Troponin 5 2HR 10.27 ng/L (0-15)
[2021-12-23 00:38] LABS: Troponin 5 2HR Delta 2.27 ABS# (0-10)
[2021-12-23 01:36] VITALS: BP 134/94; PULSE 79; RESP 16; O2SAT 98
== END 2021-12-23 01:38 | disposition home or self-care (01) ==
PROVIDERS: Emergency Provider Emergency Medicine; PCP Family Medicine
DX: R07.9 Chest pain, unspecified (principal); F17.200 Nicotine dependence, unspecified, uncomplicated; I10 Essential (primary) hypertension
CPT/HCPCS: 71045; 71275; 80053; 83690; 84484; 85007; 85025; 85378; 93005; 99285; Q9967

== ENCOUNTER 2023-04-19 07:55 | Observation (INO) | payer OTHER, SELFPAY ==
[2023-04-19] VITALS (55 sets, daily range): BP systolic 115–165; BP diastolic 65–105; PULSE 57–93; RESP 14–23; TEMP 36.4–36.9; O2SAT 84–99; BMI 31.9
--- NOTE | 2023-04-19 07:56 | CT_ITS ---
WS: [id number] CT HEAD NONCONTRAST HISTORY: Symptoms of acute stroke TECHNIQUE: Contiguous axial imaging performed through the brain in 2.5 mm imaging. Bone and soft tiss ue windows. Sagittal and coronal reformats reviewed. All CT scans at [facility] use at least one of these dose optimization techniques: automated exposure control; mA and/or kV adjustment per pa tient size (includes targeted exams where dose is matched to clinical indication); or iterative recon struction. DLP: 1044.09 mGy COMPARISON: 10/08/2021 No acute intracranial hemorrhage, midline shift or mass effect. Mild atrophy and mild symmetric small vessel ischemic disease. No prior infarct. No loss of the modi- white matter differentiation. Ventricles: Normal size with no hydrocephalus. No inferior displacement of the cerebellar tonsils. Paranasal sinuses: Mucoperiosteal thickening in the ethmoid air cells. No air-fluid levels. Mastoid air cells: Well pneumatized. Calvarium and scalp: Skull is intact with no soft tissue edema or swelling. IMPRESSION: 1. No acute intracranial hemorrhage or edema. 2. Mild atrophy and small vessel ischemic disease. Similar to 10/08/2021. Notified Connor Quach DO at 04/19/2023 8:05 AM.
--- NOTE | 2023-04-19 07:56 | ECG_ITS ---
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 Measurements Intervals [place] Rate: 72 P: 51 TN: 181 QRS: 51 QRSD: 97 T: 38 QT: 357 QTc: 392 Interpretive Statements SINUS RHYTHM POSSIBLE RIGHT VENTRICULAR CONDUCTION DELAY [RSR (QR) IN V1/V2] Compared to ECG 12/22/2021 21:55:09 Sinus tachycardia no longer present Electronically Signed On 04-19-2023 13:31:43 CDT by Meghann Peters M.D. [id number]
--- NOTE | 2023-04-19 08:10 | W.ED.NEUROSD ---
HPI - Neuro Symptoms/Deficit General: Chief Complaint: Neuro Symptoms/Deficit Stated Complaint: stroke symptoms Time Seen by Provider: 04/19/23 07:55 Source: patient Mode of arrival: ambulatory History of Present Illness: 52-year-old male presents to the emergency room Complaints of sudden onset of right-sided weakness confusion feeling drunk difficulty speaking. On arrival here he has persistent symptoms and is a stroke score of 8 see the stroke scoring below. He is not on any anticoagulants. No recent surgeries. His blood pressure is well controlled and his blood sugar was normal. He has previously had a work-up in September 2021 CTA head and neck and CT head were both negative at that time his blood pressure was poorly controlled. He is not currently on any anticoagulants he is on amlodipine for blood pressure. He woke up with out any symptoms this morning prepared for work and was driving to work with a friend in and around 645 he suddenly noticed change in symptoms including difficulty speaking confusion and disorientation he states he felt like he was drunk he had no vision changes may notice weakness on the right side of his face.l Time: 07:55 Last Observed Normal: 06:45 Timing confirmed by: other (Friend) Location: speech, right face, right arm and right leg History of same: Yes Severity: mild Quality: weak Relieving factors: none Exacerbating factors: none Context: sudden onset On Anticoagulants: No Associated symptoms: Deny chest pain, cough, diaphoresis, fevers/chills, headache(s), anorexia, malaise, nausea, seizures, short of breath, syncope, tingling, vertigo, vomiting or weakness Review of Systems Const: Denies: fever(s), chills, fatigue, malaise or diaphoresis Eyes: Denies: change in vision or blurry vision Card: Denies: chest pain, palpitations, irregular heart rhythm or syncope Resp: Denies: dyspnea, productive cough or non-productive cough GI: Denies: abdominal pain, nausea or vomiting : Denies: flank pain, dysuria, urinary frequency or urinary urgency Skin/Breast: Denies: rash or pruritus Neuro: Denies: headache(s) or vertigo PFS ED PFSH: Medical History ACL injury tear right and left knees Anxiety and depression Environmental and seasonal allergies Essential (primary) hypertension Surgical History 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 H/O wrist surgery right wrist History of neck surgery Family History Other Cancer Hypertension Denies family history of Diabetes Dementia Stroke Social History Smoking and tobacco status: current every day smoker Second hand smoke exposure: No Smoking risk assessment/counseling performed?: No Alcohol intake: current Alcohol intake frequency: 0-2 Drinks per Day Desire information about alcohol rehabilitation?: No Counseling given: No Substance/Drug Use: never Desire information about substance/drug rehabilitation?: No Counseling given: No Adopted: No Caregiver/support person: No Lives independently: Yes Household members: none Housing: Other Marital status: Single Number of children: 0 service: No Current occupational status: employed Do you think of yourself as: Straight/Heterosexual Current gender identity: Male NIH stroke score NIHSS: Level Of Consciousness - 1a: 1 Level Of Consciousness Questions - 1b: Both Correct Level Of Consciousness Commands - 1c: Both Correct Best Gaze - 2: Normal Visual Fisher - 3: No Visual Loss Facial Palsy - 4: Minor Paralysis Motor Arm Right - 5: Drift Motor Arm Left - 5: No Drift Motor Leg Right - 6: Drift Motor Leg Left - 6: No Drift Limb Ataxia - 7: Present In Two Limbs Sensory - 8: Mild To Moderate Loss Best Language - 9: No Aphasia Dysarthia - 10: Mild/Moderate Dysarthia Extinction And Inattention - 11: 0 Score: Total Score: 8 Physical Exam Const: GENERAL APPEARANCE: cooperative and comfortable ORIENTATION/CONSCIOUSNESS: Yes awake and Yes oriented to person HENMT: COMMON NORMALS: normocephalic, atraumatic and hearing grossly normal bilaterally HEAD & SCALP: normocephalic and atraumatic Resp: COMMON NORMALS: normal respiratory effort, No retractions, No use of accessory muscles and clear to auscultation bilaterally AUSCULTATION: clear to auscultation bilaterally Cardio: COMMON NORMALS: regular rate, regular rhythm and No murmurs present (Cardio) RATE: regular rate RHYTHM: regular rhythm GI: COMMON NORMALS: Soft to palpation and No hepatosplenomegaly present AUSCULTATION: Yes normoactive bowel sounds PALPATION: Yes Soft to palpation, No Tenderness to palpation present (GI), No Guarding due to palpation present (GI) and Yes No hepatosplenomegaly present Extremity: COMMON NORMALS: normal to inspection, capillary refill normal, no clubbing, cyanosis or edema, no calf tenderness and no pedal edema Neuro: SENSORIUM/ORIENTATION: Yes oriented to person OTHER: See NIH scoring Skin: COMMON NORMALS: no rashes or lesions noted GENERAL SKIN EXAM: no rashes or lesions noted Course Vital Signs: Vital signs: Vital Signs Temperature 97.6 F 04/19/23 13:45 Pulse Rate 78 04/19/23 13:45 Respiratory Rate 18 04/19/23 13:45 Blood Pressure 160/103 04/19/23 13:45 Pulse Oximetry 96 04/19/23 13:30 Oxygen Delivery Me thod Room Air 04/19/23 13:07 MDM - Neuro Symptoms/Deficit Medical Decision Making Discussed risks and benefits patient is within the timeframe he is not on any anticoagulants blood pressure is well controlled. He does qualify as a candidate for tPA he wishes to proceed we discussed the risks of bleeding he expressed understanding. tPA administered. Discussed with [facility] as well they concur. Will admit to ICU with hospitalist services. Medical Records I reviewed the patient's medical records. Lab Data I reviewed the patient's lab results. 04/19/23 08:06 04/19/23 08:06 Laboratory Results WBC 10.27 10^3/uL (3.29-11.43) 04/19/23 08:06 RBC 4.80 10^6/uL (3.85-5.65) 04/19/23 08:06 Hgb 16.00 g/dL (11.27-16.99) 04/19/23 08:06 Hct 45.3 % (37-53) 04/19/23 08:06 MCV 94.4 fl (82-101) 04/19/23 08:06 MCH 33.3 pg (27-33) H 04/19/23 08:06 MCHC 35.3 g/dL (30-55) 04/19/23 08:06 RDW 12.0 % (12.1-15.1) L 04/19/23 08:06 Plt Count 237 10^3/cmm (157-399) 10/06/23 08:06 MPV 8.8 fL (7.4-10.4) 04/19/23 08:06 Neut % (Auto) 63.2 % 04/19/23 08:06 Lymph % (Auto) 24.2 % 04/19/23 08:06 [place] % (Auto) 6.8 % 04/19/23 08:06 Eos % (Auto) 4.9 % 04/19/23 08:06 Baso % (Auto) 0.7 % 04/19/23 08:06 Neut # (Auto) 6.49 10^3/uL (1.8-7.7) 04/19/23 08:06 Lymph # (Auto) 2.5 10^3/uL (0.8-4.8) 04/19/23 08:06 [place] # (Auto) 0.7 10^3/uL (0.2-0.9) 04/19/23 08:06 Eos # (Auto) 0.5 10^3/uL (0.0-0.8) 04/19/23 08:06 Baso # (Auto) 0.1 10^3/uL (0.0-0.1) 04/19/23 08:06 Nucleated RBC % (auto) 0 % 04/19/23 08:06 Nucleated RBCs # 0.0 /100WBC 04/19/23 08:06 PT 13.30 SECONDS (12.1-14.9) 04/19/23 08:06 INR 0.98 (0.8-1.2) 04/19/23 08:06 APTT 28.7 SECONDS (23.9-36.7) 04/19/23 08:06 Sodium 138 mmol/L (136-145) 04/19/23 08:06 Potassium 4.5 mmol/L (3.5-5.1) 04/19/23 08:06 Chloride 103 mmol/L (98-107) 04/19/23 08:06 Carbon Dioxide 27 mmol/L (22-29) 04/19/23 08:06 Anion Gap 12.5 (5-19) 04/19/23 08:06 BUN 15 mg/dL (6-20) 04/19/23 08:06 Creatinine 1.2 mg/dL (0.7-1.2) 04/19/23 08:06 GFR Calculation 63.6 mL/min (90-130) L 04/19/23 08:06 Glucose 125 mg/dL (65-115) H 04/19/23 08:06 POC Glucose 135 mg/dL (70-110) H 04/19/23 08:09 Estimat Average Glucose 111 04/19/23 08:06 Hemoglobin A1c 5.5 % (4.0-6.0) 04/19/23 08:06 Calculated Osmolality 288 mOsm/kg (285-295) 04/19/23 08:06 Calcium 8.9 mg/dL (8.5-10.5) 04/19/23 08:06 Total Bilirubin 0.2 mg/dL (0.15-1.2) 04/19/23 08:06 AST 20 U/L (0-40) 04/19/23 08:06 ALT 24 U/L (0-41) 04/19/23 08:06 Alkaline Phosphatase 126 U/L (40-130) 04/19/23 08:06 Total Protein 7.0 g/dL (6.6-8.7) 04/19/23 08:06 Albumin 4.1 g/dL (3.5-5.2) 04/19/23 08:06 Globulin 2.9 g/dL (1.3-4.6) 04/19/23 08:06 TSH 0.60 uIU/mL (0.27-4.20) 04/19/23 08:06 Urine Color Yellow (Yellow) 04/19/23 08:50 Urine Appearance Clear (CLEAR) 04/19/23 08:50 Urine pH 6 (5-7) 04/19/23 08:50 Ur Specific [place] 1.005 (1.005-1.030) 04/19/23 08:50 Urine Protein Neg (Negative) 04/19/23 08:50 Urine Glucose (UA) Norm (Normal) 04/19/23 08:50 Urine Ketones Negative (Negative) 04/19/23 08:50 Urine Blood Neg (Negative) 04/19/23 08:50 Urine Nitrate Negative (Negative) 04/19/23 08:50 Urine Bilirubin Neg (Negative) 04/19/23 08:50 Urine Urobilinogen Norm mg/dL (Negative) 04/19/23 08:50 Ur Leukocyte Esterase Negative (Negative) 04/19/23 08:50 Urine Opiates Screen Negative ng/mL (Negative) 04/19/23 08:50 Ur Barbiturates Screen Negative ng/mL (Negative) 04/19/23 08:50 Ur Phencyclidine Scrn Negative ng/mL (Negative) 04/19/23 08:50 Ur Amphetamines Screen Negative ng/mL (Negative) 04/19/23 08:50 U Benzodiazepines Scrn Negative ng/mL (Negative) 04/19/23 08:50 Urine Cocaine Screen Negative ng/mL (Negative) 04/19/23 08:50 U Marijuana (THC) Screen Negative ng/mL (Negative) 04/19/23 08:50 All radiology interpretation(s) finalized by discharge Discharge Plan Discharge Patient Disposition: Admitted As Inpatient Admit Provider: Enrique Horton Clinical Impression: Cerebrovascular accident, Hypertension Condition: Stable Coding Level of Care Code ED Labor Relations Consultant for Kamila Crawley
[2023-04-19 08:11] LABS: Basophils # 0.1 10^3/uL (0.0-0.1); Basophils % 0.7 %; Eosinophils # 0.5 10^3/uL (0.0-0.8); Eosinophils % 4.9 %; Hematocrit 45.3 % (37-53); Lymphocytes # 2.5 10^3/uL (0.8-4.8); Lymphocytes % 24.2 %; Mean Corpuscular HGB Conc 35.3 g/dL (30-55); Mean Corpuscular Hemoglobin 33.3 pg (27-33); Mean Corpuscular Volume 94.4 fl (82-101); Mean Platelet Volume 8.8 fL (7.4-10.4); Monocytes # 0.7 10^3/uL (0.2-0.9); Monocytes % 6.8 %; Neutrophils # 6.49 10^3/uL (1.8-7.7); Neutrophils % 63.2 %; Nucleated Red Blood Cells % 0 %; Platelet Count 237 10^3/cmm (157-399); White Blood Count 10.27 10^3/uL (3.29-11.43)
--- NOTE | 2023-04-19 08:14 | CT_ITS ---
WS: [id number] CTA HEAD AND NECK TECHNIQUE: Contrast enhanced CTA of the head and neck with coronal and sagittal reformatted images an d maximum intensity projection (MIP) images. NASCET criteria utilized. CLINICAL INFORMATION: CVA COMPARISON: CTA 10/08/2021 DLP: 507.[address] scans at [facility] use at least one of these dose optimization techniques: automated e xposure control; mA and/or kV adjustment per patient size (includes targeted exams where dose is matc hed to clinical indication); or iterative reconstruction. FINDINGS: RIGHT: RIGHT common carotid artery is patent. No significant RIGHT ICA stenosis. RIGHT ICA is patent to the skull base. LEFT: LEFT common carotid artery is patent. No significant LEFT ICA stenosis. LEFT ICA is patent to t he skull base. INTRACRANIAL CTA: Codominant and patent vertebral arteries bilaterally. Basilar artery is patent. Normal vascularity to the ARMATURE WINDER REPAIR territory bilaterally. Both ICAs are patent at the skull base. Normal vascularity to the EZEQUIEL and MCA territories bilaterally . No evidence of flow-limiting stenosis or aneurysm. Smaller LEFT A1 segment. Lung apices are well aerated. Mastoid air cells are well aerated. Polypoid mucosal thickening in the paranasal sinuses. Mucosal thickening in the frontoethmoidal recesses and ethmoid air cells. Normal p osterior nasopharynx. Normal parapharyngeal fat. Tonsillar calcifications. Mild to moderate spondylit ic changes cervical spine. Disc osteophyte complex with mild central canal stenosis C3-C4. Multinodular thyroid. IMPRESSION: 1. No significant ICA stenosis. 2. Normal intracranial CTA. No flow-limiting stenosis. 3. Multinodular thyroid similar to previous. 4. Polypoid mucosal thickening in the paranasal sinuses. Notified Connor Quach DO at 04/19/2023 9:06 AM.
[2023-04-19] MEDS: iohexol 350 mg/mL 500 mL Btl (per mL) IV (08:34)
[2023-04-19 08:45] LABS: Glucose Point of Care 135 mg/dL (70-110)
[2023-04-19 08:49] LABS: Alanine Aminotransferase 24 U/L (0-41); Albumin Level 4.1 g/dL (3.5-5.2); Alkaline Phosphatase 126 U/L (40-130); Anion Gap 12.5 (5-19); Aspartate Amino Transferase 20 U/L (0-40); Blood Urea Nitrogen 15 mg/dL (6-20); Calcium 8.9 mg/dL (8.5-10.5); Carbon Dioxide 27 mmol/L (22-29); Chloride 103 mmol/L (98-107); Globulin 2.9 g/dL (1.3-4.6); Glomerular Filtration Rate 63.6 mL/min (90-130); Glucose 125 mg/dL (65-115); Osmolality Calculated 288 mOsm/kg (285-295); Potassium 4.5 mmol/L (3.5-5.1); Sodium 138 mmol/L (136-145); Total Bilirubin 0.2 mg/dL (0.15-1.2)
[2023-04-19 08:53] LABS: INR 0.98 (0.8-1.2)
[2023-04-19 08:54] LABS: Partial Thromboplastin Time 28.7 SECONDS (23.9-36.7)
[2023-04-19 09:04] LABS: Add Urine Microscopic? NO; Charge for UA Resulting for Rev
[2023-04-19 09:08] LABS: Bilirubin Urine Neg (Negative); Blood Urine Neg (Negative); Glucose Urine UA Norm (Normal); Ketones Urine Negative (Negative); Leukocyte Esterase Urine Negative (Negative); Nitrate Urine Negative (Negative); Protein Urine Neg (Negative); Specific Gravity, Urine 1.005 (1.005-1.030); Urine Appearance Clear (CLEAR); Urine Color Yellow (Yellow); Urobilinogen Urine Norm (Negative); pH Urine 6 (5-7)
[2023-04-19 09:17] LABS: Amphetamines Screen Urine Negative (Negative); Barbiturates Screen Urine Negative (Negative); Benzodiazepines Screen Urine Negative (Negative); Cocaine Screen Urine Negative (Negative); Opiate Screen Urine Negative (Negative); PCP Screen Urine Negative (Negative); THC Screen Urine Negative (Negative)
--- NOTE | 2023-04-19 09:53 | P.HP_ITS ---
Providers/Chief Complaint Admitting Physician: Enrique Horton MD Primary Care Provider: Joseph Flores DO Chief Complaint: stroke symptoms History of Present Illness Michoacano Wheat is a 52 year old male with history of hypertension and tobacco dependency who presents to the hospital with strokelike symptoms. He woke up normal this morning, and when going to work felt drunk with right-sided weakness, difficulty speaking, confusion, right facial droop. In the emergency department his stroke score was 8, and after negative CT head he was given tPA. Patient reports he feels quite a bit better. Family who arrived to the emergency department later states he is speaking more normally than he was when he arrived. Patient denies any swallowing problems. He states he has a slight headache. No nausea or vomiting. No recent illness or fever. Review of Systems General: Denies: 10 or more systems reviewed and unremarkable except in HPI and below Card: Denies: chest pain Resp: Denies: dyspnea GI: Denies: abdominal pain, nausea, vomiting, hematochezia or melena Medications/Allergies Home Medications Medication Instructions Recorded Confirmed Last Taken Type amlodipine 5 mg tablet 5 mg PO DAILY elevated blood 10/12/21 04/19/23 Unknown Rx pressure 90 days #90 tabs capsicum (cayenne) 447 mg capsule 447 mg PO QAM 04/19/23 04/19/23 04/18/23 History lakia (Zingiber officinalis) 250 250 mg PO QAM 04/19/23 04/19/23 04/18/23 History mg capsule (lakia extract) turmeric 400 mg capsule 40 mg PO QAM 04/19/23 04/19/23 04/18/23 History Allergies Allergy/AdvReac Type Severity Reaction Status Date / Time No Known Allergies Allergy Verified 12/14/21 17:22 PFSH Acute PFSH: Medical History ACL injury tear right and left knees Anxiety and depression Environmental and seasonal allergies Essential (primary) hypertension Surgical History 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 H/O wrist surgery right wrist History of neck surgery Family History Other Cancer Hypertension Denies family history of Diabetes Dementia Stroke Social History Smoking and tobacco status: current every day smoker Second hand smoke exposure: No Smoking risk assessment/counseling performed?: No Alcohol intake: current Alcohol intake frequency: 0-2 Drinks per Day Desire information about alcohol rehabilitation?: No Counseling given: No Substance/Drug Use: never Desire information about substance/drug rehabilitation?: No Counseling given: No Adopted: No Caregiver/support person: No Lives independently: Yes Household members: none Housing: Other Marital status: Single Number of children: 0 service: No Current occupational status: employed Do you think of yourself as: Straight/Heterosexual Current gender identity: Male Vitals/I&O/Wt Last Vital Signs Temp 97.6 F 04/19/23 07:55 Pulse 73 04/19/23 09:02 Resp 18 04/19/23 09:02 BP 151/97 04/19/23 09:02 Pulse Ox 96 04/19/23 09:02 O2 Del Method Room Air 04/19/23 09:02 Weight last 48 hrs Weight 103.873 kg Physical Exam Narrative: General exam is a white male, no distress Neurologic: Difficult at this point to determine any deficit other than perhaps some word finding difficulty. Note that his stroke score in the emergency department was an 8. NIHSS now would be approximately 1. Skin no rash HEENT: Atraumatic and normocephalic. Pupils equally round. Oropharynx is clear. Tongue is midline neck is supple no lymphadenopathy thyromegaly Cardiovascular regular rate and rhythm without murmur Lungs clear Abdomen is soft with positive bowel sounds. No obvious organomegaly exams deferred Extremities no sinus clubbing edema, cap refill brisk Data 04/19/23 08:06 04/19/23 08:06 Other Labs: EKG demonstrates normal sinus rhythm, normal axis, rate of 72. I reviewed this personally CT head which I reviewed demonstrates no acute findings CTA head and neck no obvious thrombosis. Multinodular thyroid is noted PT PTT are normal LFTs are normal Urinalysis negative Urine drug screen negative I have ordered a TSH, hemoglobin A1c, lipid profile A&P Assessment and plan (1) Cerebrovascular accident (CVA) involving left cerebral hemisphere: Significant stroke scale of 8 on arriving to the emergency department with symptoms consistent with a left hemispheric/MCA CVA. He received tPA in the emergency department and appears to be improving. Close monitoring in the ICU Check hemoglobin A1c and TSH Hydration Telemetry Check echocardiogram Initiate statin Likely initiate aspirin, 24 hours following tPA administration (2) Essential (primary) hypertension: As needed medication initiated for parameters following tPA. Maintain blood pressure less than 180/105 the first 24 hours after tPA Labetalol IV as needed x1. If more is needed consider nicardipine drip which was ordered to be instituted should blood pressure above these parameters occur. Do not lower systolic less than 160. (3) Tobacco dependency: Counseled on abstinence Plan Full code Has received tPA. Avoid other anticoagulation currently. Reassess after 24 hours. Attestations Medical Necessity Statement*: May need less than 2 midnight stay for CVA symptoms rapidly improving following tPA. Critical Care Time: The high probability of a clinically significant, sudden or life threatening deterioration of the patient's [neurologic] system(s) required my full and direct attention, intervention and personal management. The critical care time is as shown. This time is in addition to time spent performing any reported procedures but includes the following: [x] Data and vital sign review and interpretation [x] Patient assessment, examination and intervention [x] Documentation [x] Medication orders and management Critical Care Time (min): 46 Coding Level of Care Code Critical Care >/= 30 minutes Critical care time (in minutes): 46 The high probability of a clinically significant, sudden or life threatening deterioration, as referenced in this documentation, required my full and direct attention, intervention and personal management. The critical care time shown is in addition to time spent performing any reported separately billable procedures and includes the following: [x] Data and vital sign review and interpretation [x ] Patient assessment, examination and intervention [x] Medication orders and management [x] Patient/Family updates as able [x] Care Coordination and Doc umentation. Diagnoses Cerebrovascular accident (CVA) involving left cerebral hemisphere I63.9 Essential (primary) hypertension I10 Tobacco dependency F17.200
[2023-04-19 09:58] LABS: Estmated Average Glucose 111; Hemoglobin A1C 5.5 % (4.0-6.0)
--- NOTE | 2023-04-19 12:03 | PC.NURSE ---
to room to assess pt. pt noted to be weak on right side again with right sided facial droop. speech still slurred. states he feels drunk again. md notified. no new orders.
--- NOTE | 2023-04-19 12:49 | PC.OT ---
Patient on hold for OT eval until 04/20/2023 after 8:26 am due to TPA protocol for not allowed out of bed for 24 hours.
--- NOTE | 2023-04-19 12:55 | PC.NURSE ---
bedside nurse swallow eval done no cough or choking started full liq at this time
[2023-04-19] MEDS: sodium chloride 0.9% 1,000 ML 100 ML IV ×2 (13:02→20:34)
--- NOTE | 2023-04-19 17:44 | PC.NURSE ---
speech somewhat improved at this time evening meal served no difficulty swallowing
[2023-04-19] MEDS: atorvastatin 40 mg Tablet 80 MG PO (20:33)
[2023-04-20] VITALS (25 sets, daily range): BP systolic 106–147; BP diastolic 67–100; PULSE 56–89; RESP 12–27; TEMP 36.2–37; O2SAT 93–99
[2023-04-20 03:58] LABS: Basophils # 0.1 10^3/uL (0.0-0.1); Basophils % 0.6 %; Eosinophils # 0.6 10^3/uL (0.0-0.8); Eosinophils % 4.5 %; Hematocrit 45.6 % (37-53); Lymphocytes # 3.6 10^3/uL (0.8-4.8); Mean Corpuscular Hemoglobin 32.8 pg (27-33); Mean Corpuscular Volume 96.4 fl (82-101); Mean Platelet Volume 9.4 fL (7.4-10.4); Monocytes # 1.1 10^3/uL (0.2-0.9); Monocytes % 8.8 %; Neutrophils # 7.37 10^3/uL (1.8-7.7); Neutrophils % 57.8 %; Nucleated Red Blood Cells % 0 %; Platelet Count 231 10^3/cmm (157-399); Red Blood Count 4.73 10^6/uL (3.85-5.65); Red Cell Distribution Width 12.1 % (12.1-15.1); White Blood Count 12.75 10^3/uL (3.29-11.43)
[2023-04-20 04:27] LABS: Chol HDL Ratio 4.57 mg/dL (1.0-5.00); Cholesterol 160 mg/dL (0-200); HDL Cholesterol 35 mg/dL (60-100); LDL Cholesterol Calculated 99 mg/dL (50-129); LDL HDL Ratio 2.83 RATIO (0.00-3.22); Triglycerides 131 mg/dL (0-150)
[2023-04-20 04:28] LABS: Alanine Aminotransferase 20 U/L (0-41); Albumin Level 3.8 g/dL (3.5-5.2); Alkaline Phosphatase 113 U/L (40-130); Anion Gap 11.1 (5-19); Aspartate Amino Transferase 17 U/L (0-40); Blood Urea Nitrogen 11 mg/dL (6-20); Calcium 8.7 mg/dL (8.5-10.5); Carbon Dioxide 26 mmol/L (22-29); Chloride 104 mmol/L (98-107); Globulin 2.6 g/dL (1.3-4.6); Glomerular Filtration Rate 78.5 mL/min (90-130); Glucose 104 mg/dL (65-115); Osmolality Calculated 284 mOsm/kg (285-295); Potassium 4.1 mmol/L (3.5-5.1); Sodium 137 mmol/L (136-145); Total Bilirubin 0.6 mg/dL (0.15-1.2); Total Protein 6.4 g/dL (6.6-8.7)
--- NOTE | 2023-04-20 06:00 | USCV_ITS ---
[place] Age: 52 Gender: M : 1970 Exam Date: 04/20/2023 06:10 Ordering Phys: Enrique Horton MD Technologist: Kurt Kang Exam Location: [facility] Indication: CVA BP: 116 / 74 HR: 60 Rhythm: Sinus Technical Quality: Adequate MEASUREMENTS (Male / Female) Normal Values 2D ECHO LVOT Diameter 2.0 cm LV Ejection Fraction MOD 2C 66.2 % LV Ejection Fraction 2C AL 65.4 % LA Diameter 3.1 cm LA Width 3.6 cm LA Height 4.6 cm RA Width 3.5 cm RA Height 4.4 cm Aorta at Sinotubular Diameter 2.6 cm IVC Diameter 1.9 cm M-MODE Aortic Annulus Diameter 3.4 cm LA Ao Ratio MM 0.9 MV E Point Septal Separation 0.5 cm DOPPLER AV Peak Velocity 150.0 cm/s LVOT Peak Velocity 111.0 cm/s AV Area Cont Eq vti 2.4 cm squared AV Area Cont Eq pk 2.4 cm squared MV Peak Velocity 112.0 cm/s MV Area PHT 5.0 cm squared Mitral E to A Ratio 1.3 MV E' Velocity 49.0 cm/s Mitral E to MV E' Ratio 8.1 Mitral E to LV E' Lateral Ratio 8.4 Mitral E to LV E' Septal Ratio 7.8 TR Peak Velocity 145.6 cm/s TR Peak Gradient 8.5 mmHg TR Mean Velocity 120.6 cm/s TR Mean Gradient 5.8 mmHg TR Velocity Time Integral 33.7 cm Right Atrial Pressure 3.0 mmHg Pulmonary Artery Systolic Pressu 11.5 mmHg PV Peak Velocity 86.3 cm/s RV Acceleration Time 0.1 s RV Ejection Time 0.3 s RV AcT/ET 0.5 FINDINGS Left Ventricle Normal left ventricular size, systolic function and wall thickness, with no regional wall motion abnormalities. Normal left ventricular wall thickness. Normal diastolic filling pattern. Right Ventricle The right ventricle is normal in size and function. Right Atrium The right atrium is normal in size. Left Atrium The left atrium is normal in size. Mitral Valve Structurally normal mitral valve without significant stenosis or prolapse. There is trivial mitral regurgitation. Aortic Valve Structurally normal aortic valve without significant sclerosis or stenosis. There is no aortic regurgitation. Tricuspid Valve Structurally normal tricuspid valve without significant stenosis. There is trivial regurgitation. Pulmonary artery systolic pressure is normal. Pulmonic Valve Structurally normal pulmonic valve without significant stenosis. There is no pulmonic regurgitation. Pericardium Normal pericardium without effusion. Aorta Normal ascending aorta dimension. IVC The inferior vena cava appears normal. CONCLUSIONS Kendrick Martin MD (Electronically Signed) Final Date: 20 April 2023 10:27 S
--- NOTE | 2023-04-20 08:57 | PC.NURSE ---
to ct at this time and back
--- NOTE | 2023-04-20 09:00 | CTR_ITS ---
PROCEDURE INFORMATION: Exam: CT Head Without Contrast Exam date and time: 04/20/2023 8:43 AM Age: 52 years old Clinical indication: Altered mental status/memory loss; Confusion or disorientation; Additional info: Follow up tpa TECHNIQUE: Imaging protocol: Computed tomography of the head without contrast. Radiation optimization: All CT scans at this facility use at least one of these dose optimization techniques: automated exposure control; mA and/or kV adjustment per patient size (includes targeted exams where dose is matched to clinical indication); or iterative reconstruction. REPORTING DATA: Count of CT and Cardiac NM exams in prior 12 months: This patient has received 2 known CTs and 0 known cardiac nuclear medicine studies in the 12 months prior to the current study. COMPARISON: CT head thrombolytic [id number] 04/19/2023 7:56 AM RADIATION DOSE METRICS: Total DLP (mGy-cm): 1154.18 FINDINGS: Brain: Normal. No hemorrhage. Unremarkable white matter. No mass effect. Cerebral ventricles: No ventriculomegaly. Paranasal sinuses: Polypoid mucosal thickening is noted within frontal and ethmoid sinuses and maxillary antra. Mastoid air cells: Visualized mastoid air cells are well aerated. Bones/joints: Unremarkable. No acute fracture. Soft tissues: Unremarkable. CT/CT head wo con* [id number] IMPRESSION: No acute intracranial process.
--- NOTE | 2023-04-20 14:31 | PC.NURSE ---
report called for transfer pending
--- NOTE | 2023-04-20 15:52 | P.PN_ITS ---
Subjective Subjective: Hospital course, labs appreciated. Today morning seen in ICU. Appreciate CT head done earlier today morning. Seen with family and at bedside. Patient states his left-sided weakness is slightly improved but still bothering him, patient has facial droop. After family members. Seems to be improving. Patient himself denies any nausea, vomiting, headache, dizziness. Slightly frustrated with weakness in the limbs. Appreciate vitals. Blood work appreciated for leukocytosis of 12.75, stable hemoglobin level, CMP with stable electrolytes and creatinine, A1c of 5.5 Vitals/I&O/Wt Last Vital Signs Temp 98.4 F 04/20/23 04:00 Pulse 69 04/20/23 14:00 Resp 19 H 04/20/23 14:00 BP 147/67 04/20/23 14:00 Pulse Ox 98 04/20/23 10:00 O2 Del Method Room Air 04/20/23 06:00 04/20/23 04/20/23 04/20/23 06:59 14:59 22:59 Intake Total 740 / 740 Output Total 100 / 850 900 / 900 Balance -100 / 553.333 -160 / -160 Weight last 48 hrs Weight 103.873 kg Physical Exam Narrative: General exam is a white male, no distress Neurologic: Left-sided upper limb and lower limb weakness 3/5, right-sided facial droop, slurred speech, pupils bilaterally equal and reactive Skin no rash HEENT: Atraumatic and normocephalic. Pupils equally round. Oropharynx is clear. Tongue is midline neck is supple no lymphadenopathy thyromegaly Cardiovascular regular rate and rhythm without murmur Lungs clear Abdomen is soft with positive bowel sounds. No obvious organomegaly exams deferred Extremities no sinus clubbing edema, cap refill brisk Data 04/20/23 03:12 04/20/23 03:12 A&P Assessment and plan (1) Cerebrovascular accident (CVA) involving left cerebral hemisphere: Significant stroke scale of 8 on arriving to the emergency department with symptoms consistent with a left hemispheric/MCA CVA. Post tPA on 04/19. Appreciate [address] head without any acute changes. Appreciate A1c, lipid panel, TSH level. Appreciate echocardiogram for normal ejection fraction without regional wall motion abnormality or structural abnormality. Start aspirin 81 mg daily, continue with oral statins. PT/OT speech therapy. (2) Essential (primary) hypertension: Goal blood pressure less than 140/90 mmHg now. Start on amlodipine 5 mg daily. Counseled patient in detail for need for lifestyle modification with compliance to antihypertensives, smoking cessation. (3) Tobacco dependency: Counseled on abstinence Plan Leukocytosis: Unknown cause for now. Most likely in setting of recent fall. No infectious source for now. Hold off on antibiotics. Full code Diet to be advanced as per speech therapy. Aspirin 81 mg daily. Start on heparin 5000 every 12 hourly 24 hours post tPA which would be 04/20 evening. Discharge plan: Discussed in detail with the patient that given his acute CVA, significant left-sided weakness he would need strict rehab for possible early improvement, speech rehab for improvement in his oral intake. Patient verbalize d understanding. Different options including home with home health for therapy, home with outpatient therapy, acute rehab were discussed in detail. Patient is agreeable for acute rehab. We will consult case management once they are available on Saturday. Transfer to [facility] floor. Attestations Medical Necessity Statement*: Requires further hospitalization for safe discharge planning in a patient who was admitted for left MCA stroke, post tPA Diagnoses Cerebrovascular accident (CVA) involving left cerebral hemisphere I63.9 Essential (primary) hypertension I10 Tobacco dependency F17.200
[2023-04-20] MEDS: amlodipine 5 mg Tablet PO (16:59)
[2023-04-20] MEDS: atorvastatin 40 mg Tablet 80 MG PO (21:03)
[2023-04-21] VITALS (15 sets, daily range): BP systolic 115–147; BP diastolic 70–89; PULSE 54–77; RESP 15–18; TEMP 36.4–36.7; O2SAT 91–99
[2023-04-21] MEDS: aspirin 81 mg EC Tablet PO (08:40)
[2023-04-21] MEDS: amlodipine 5 mg Tablet PO (08:40)
[2023-04-21] MEDS: heparin 5,000 unit/mL INJ 1 mL 5000 UNIT SUBCUT ×2 (08:40→20:51)
--- NOTE | 2023-04-21 15:53 | P.PN_ITS ---
Subjective Subjective: No events overnight. Seen and multiple family members at bedside. Denies any nausea, vomiting, headache. Patient's speech is a lot more clearer today as compared to yesterday. States his weakness in the leg seems to be improving, he seems to be more stable on his feet other than occasional episodes of locking of the knee as he still needs to learn on how to walk steady with a weak leg, comp laining of persistent or less improvement in the weakness of the arms. Did have few episodes of choking while drinking water during examination. Discussed in detail with the patient about having patients and learning how to live with various weakness in the arms and legs for now while his physical activity improves. Appreciate PT/OT and speech evaluation. Vitals/I&O/Wt Last Vital Signs Temp 97.6 F 04/21/23 15:19 Pulse 59 L 04/21/23 15:19 Resp 16 04/21/23 15:19 BP 116/76 04/21/23 15:19 Pulse Ox 95 04/21/23 15:19 O2 Del Method Room Air 04/21/23 15:19 04/21/23 04/21/23 04/21/23 06:59 14:59 22:59 Intake Total 600 / 600 Output Total 500 / 1850 300 / 300 Balance -500 / 380 300 / 300 Physical Exam Narrative: General exam is a white male, no distress Neurologic: Left-sided upper limb and lower limb weakness 3/5, right-sided facial droop, slurred speech, pupils bilaterally equal and reactive Skin no rash HEENT: Atraumatic and normocephalic. Pupils equally round. Oropharynx is clear. Tongue is midline neck is supple no lymphadenopathy thyromegaly Cardiovascular regular rate and rhythm without murmur Lungs clear Abdomen is soft with positive bowel sounds. No obvious organomegaly exams deferred Extremities no sinus clubbing edema, cap refill brisk Data 04/20/23 03:12 04/20/23 03:12 A&P Assessment and plan (1) Cerebrovascular accident (CVA) involving left cerebral hemisphere: Significant stroke scale of 8 on arriving to the emergency department with symptoms consistent with a left hemispheric/MCA CVA. Post tPA on 04/19. Appreciate [address] head without any acute changes. Appreciate A1c, lipid panel, TSH level. Appreciate echocardiogram for normal ejection fraction without regional wall motion abnormality or structural abnormality. Start aspirin 81 mg daily, cont inue with oral statins. PT/OT speech therapy. (2) Essential (primary) hypertension: Goal blood pressure less than 140/90 mmHg now. Start on amlodipine 5 mg daily. Counseled patient in detail for need for lifestyle modification with compliance to antihypertensives, smoking cessation. (3) Tobacco dependency: Counseled on abstinence Plan Leukocytosis: Unknown cause for now. Most likely in setting of recent fall. No infectious source for now. Hold off on antibiotics. Full code Diet to be advanced as per speech therapy. Aspirin 81 mg daily. Start on heparin 5000 every 12 hourly 24 hours post tPA which would be 10/07 evening. Plan for the day: Continue with aspirin, statin. Goal blood pressure less than 140/90 mmHg. Continue with amlodipine 5 mg daily. Continue with PT/OT and speech therapy. Case management consulted for acute rehab admission if possible. Aspiration precautions. Advance diet as per speech evaluation. Discussed in detail with patient, family members at bedside about plan and lifestyle modification needed going forward Discharge plan: Discussed in detail with the patient that given his acute CVA, significant left-sided weakness he would need strict rehab for possible early improvement, speech rehab for improvement in his oral intake. Patient verbalized understanding. Different options including home with home health for therapy, home with outpatient therapy, acute rehab were discussed in detail. Patient is agreeable for acute rehab. We will consult case management once they are available on Saturday. Transfer to [facility] floor. Attestations Medical Necessity Statement*: Requires further hospitalization for safe discharge planning in a patient who was admitted for significant stroke Diagnoses Cerebrovascular accident (CVA) involving left cerebral hemisphere I63.9 Essential (primary) hypertension I10 Tobacco dependency F17.200
[2023-04-21] MEDS: atorvastatin 40 mg Tablet 80 MG PO (20:51)
[2023-04-22] VITALS (13 sets, daily range): BP systolic 101–128; BP diastolic 68–91; PULSE 52–90; RESP 15–17; TEMP 36.5–36.8; O2SAT 96–99
[2023-04-22 05:14] LABS: Basophils # 0.1 10^3/uL (0.0-0.1); Basophils % 0.6 %; Eosinophils # 0.6 10^3/uL (0.0-0.8); Eosinophils % 4.6 %; Hematocrit 48.5 % (37-53); Lymphocytes # 3.3 10^3/uL (0.8-4.8); Lymphocytes % 25.2 %; Mean Corpuscular HGB Conc 34.6 g/dL (30-55); Mean Corpuscular Hemoglobin 32.8 pg (27-33); Mean Corpuscular Volume 94.7 fl (82-101); Mean Platelet Volume 8.8 fL (7.4-10.4); Monocytes # 1.1 10^3/uL (0.2-0.9); Monocytes % 8.6 %; Neutrophils # 7.99 10^3/uL (1.8-7.7); Neutrophils % 60.6 %; Nucleated Red Blood Cells % 0 %; Platelet Count 241 10^3/cmm (157-399); Red Blood Count 5.12 10^6/uL (3.85-5.65); Red Cell Distribution Width 11.8 % (12.1-15.1); White Blood Count 13.17 10^3/uL (3.29-11.43)
[2023-04-22 05:45] LABS: Alanine Aminotransferase 27 U/L (0-41); Albumin Level 4.3 g/dL (3.5-5.2); Alkaline Phosphatase 125 U/L (40-130); Anion Gap 14.7 (5-19); Aspartate Amino Transferase 20 U/L (0-40); Blood Urea Nitrogen 18 mg/dL (6-20); Carbon Dioxide 27 mmol/L (22-29); Chloride 101 mmol/L (98-107); Globulin 2.8 g/dL (1.3-4.6); Glomerular Filtration Rate 63.6 mL/min (90-130); Glucose 109 mg/dL (65-115); Osmolality Calculated 288 mOsm/kg (285-295); Potassium 4.7 mmol/L (3.5-5.1); Sodium 138 mmol/L (136-145); Total Bilirubin 0.7 mg/dL (0.15-1.2); Total Protein 7.1 g/dL (6.6-8.7)
[2023-04-22] MEDS: heparin 5,000 unit/mL INJ 1 mL 5000 UNIT SUBCUT ×2 (08:00→20:46)
[2023-04-22] MEDS: aspirin 81 mg EC Tablet PO (08:37)
[2023-04-22] MEDS: amlodipine 5 mg Tablet PO (08:37)
--- NOTE | 2023-04-22 17:37 | PM.PN ---
Subjective Subjective: He reports he is doing all right. Denies any new symptoms. Persistent weakness on the right side. Has been working with therapy. He is looking forward to going to rehab. Discussed with him importance of rehabilitation, discussed much of the deficits may unfortunately remain the same, but may see some improvement, however, additionally important for him to be able to manage with the new deficits and do so safely, which he states he understands. He denies any cough or respiratory symptoms. Denies any rashes other than some chigger bites on the legs since he lives in the [facility]. Vitals/I&O/Wt Last Vital Signs Temp 97.8 F 04/22/23 17:00 Pulse 72 04/22/23 17:00 Resp 16 04/22/23 17:00 BP 123/86 04/22/23 12:00 Pulse Ox 98 04/22/23 16:00 O2 Del Method Room Air 04/22/23 16:00 04/22/23 04/22/23 04/22/23 06:59 14:59 22:59 Intake Total 120 / 960 480 / 480 Output Total 350 / 350 Balance 120 / 210 130 / 130 Physical Exam Const: COMMON NORMALS: patient oriented x3 and alert GENERAL APPEARANCE: cooperative ORIENTATION/CONSCIOUSNESS: Yes awake HENMT: COMMON NORMALS: oropharynx normal Neck/C-Spine: COMMON NORMALS: no JVD Resp: COMMON NORMALS: normal respiratory effort and clear to auscultation bilaterally AUSCULTATION: clear to auscultation bilaterally Cardio: COMMON NORMALS: no JVD, regular rhythm, S1 normal heart sound present, S2 normal heart sound present and No murmurs present (Cardio) RHYTHM: regular rhythm HEART SOUNDS: S1 normal heart sound present and S2 normal heart sound present GI: COMMON NORMALS: Normal to inspection, nondistended, normoactive bowel sounds present, Soft to palpation and non-tender PALPATION: Yes Soft to palpation Extremity: COMMON NORMALS: no joint enlargement and no pedal edema Neuro: COMMON NORMALS: patient oriented x3 and moves all extremities SENSORIUM/ORIENTATION: Yes alert OTHER: He is awake and alert, following directions readily. Oriented. I do not appreciate a significant facial droop. No difficulty with horizontal tracking. Visual mascorro full to confrontation. No visual extinction. Weakness right upper and lower extremity with drift. Reports sensation is symmetrical. No sensory extinction. Skin: COMMON NORMALS: no rashes or lesions noted NARRATIVE SKIN EXAM: Macular spots/ reportschigger bites on bilateral lower extremities. No diffuse or confluent rashes. GENERAL SKIN EXAM: no rashes or lesions noted Data 04/22/23 04:56 04/22/23 04:56 A&P Assessment and plan (1) Cerebrovascular accident (CVA) involving left cerebral hemisphere: So far no worsening of symptoms but without improvement. He is working with physical therapy. Looking forward towards rehabilitation. Reviewed echocardiogram results. Reviewed blood pressures. Reviewed CBC. CMP. Discussed with him and still having some leukocytosis 13.97. Denies any respiratory symptoms. Denies any other symptoms. Continue aspirin, statin, continue monitoring on telemetry currently. Significant stroke scale of 8 on arriving to the emergency department with symptoms consistent with a left hemispheric/MCA CVA. Post tPA on 04/19. PT/OT speech therapy. Discussed with case management. Working on placement. Pending insurance authorization. (2) Essential (primary) hypertension: Reviewed blood pressures, at goal currently on amlodipine 5 mg daily. Would benefit from lifestyle modification with compliance to antihypertensives, smoking cessation. (3) Tobacco dependency: Counseled on abstinence Plan Possible MAVERICK: Creatinine with some worsening up to 1.2. Follow-up chemistry. As he was started on statin, will check CK. Leukocytosis: Reviewed CBC.Unknown cause for now. Most likely in setting of recent fall. No infectious source for now. Denies any new symptoms. Has had some chigger bites on his legs, no suggestion of cellulitis or abscess. Recheck CBC. Hold off on antibiotics. Full code Attestations Medical Necessity Statement*: Continue admission following stroke, treated with tPA, arrangements for rehabilitation. Diagnoses Cerebrovascular accident (CVA) involving left cerebral hemisphere I63.9 Essential (primary) hypertension I10 Tobacco dependency F17.200
[2023-04-22] MEDS: atorvastatin 40 mg Tablet 80 MG PO (20:46)
[2023-04-23] VITALS (7 sets, daily range): BP systolic 127–132; BP diastolic 73–80; PULSE 63–69; RESP 15–16; TEMP 36.7; O2SAT 95–99
[2023-04-23 05:39] LABS: Basophils # 0.1 10^3/uL (0.0-0.1); Basophils % 0.9 %; Eosinophils # 0.5 10^3/uL (0.0-0.8); Eosinophils % 5.4 %; Hematocrit 47.8 % (37-53); Lymphocytes # 3.4 10^3/uL (0.8-4.8); Lymphocytes % 34.6 %; Mean Corpuscular HGB Conc 34.9 g/dL (30-55); Mean Corpuscular Hemoglobin 33.4 pg (27-33); Mean Corpuscular Volume 95.6 fl (82-101); Monocytes # 0.9 10^3/uL (0.2-0.9); Monocytes % 9.3 %; Neutrophils # 4.86 10^3/uL (1.8-7.7); Neutrophils % 49.4 %; Nucleated Red Blood Cells % 0 %; Platelet Count 212 10^3/cmm (157-399); Red Cell Distribution Width 11.8 % (12.1-15.1); White Blood Count 9.84 10^3/uL (3.29-11.43)
[2023-04-23 05:57] LABS: Anion Gap 12.8 (5-19); Blood Urea Nitrogen 17 mg/dL (6-20); C Reactive Protein 3.6 mg/L (0.0-4.9); Calcium 9.2 mg/dL (8.5-10.5); Carbon Dioxide 29 mmol/L (22-29); Chloride 103 mmol/L (98-107); Glucose 121 mg/dL (65-115); Osmolality Calculated 293 mOsm/kg (285-295); Potassium 4.8 mmol/L (3.5-5.1); Sodium 140 mmol/L (136-145)
--- NOTE | 2023-04-23 09:44 | PC.CHAP ---
Pastoral Care Encounter/Spiritual Assessment Type of Contact [] Declined looping inspector visit [] Patient/Family/Request visit [] Outpatient visit [] Follow-up visit [] Physician referral [] Code/Alert [x] Routine visit [] Staff referral [] Actively dying [] Patient sleeping [] Family support [] [] Out of room [] Palliative care [] [] Receiving care in room [] Pre-surgical visit [] Trauma [] Long length of stay [] ICU visit [] Other: Relational/Emotional Strength [x] Patient feels connected with others/family/visitors/staff [] Distress [] Loneliness/isolation [] Abandonment Spirituality of Patient [] Person of Chacha [] Attends Amish of their Chacha [] Believes in Prayer [] Reads Bible or Scientologist materials [x] There are Spiritual issues to be addressed Dry Plasterer Helper Interventions [] Prayer [x] Active listening [x] Non-anxious presence [x] Spiritual/emotional support [] Crisis/trauma care [] Spiritual counseling [] Bereavement support [] Provided bereavement packet [] Provided Bible/devotional materials [] Provided toy/stuffed animal, coloring book to patient or family member [] Provided Communion [] Anointing/[place] [] Salvation [x] Completed spiritual assessment [] Other: Impact on Illness or Injury [] Angry [] Fearful [] Anxious [] Often cries [] Exhaustion [] Unable to work [] Unable to attend jew [] Unable to walk/stand [] Unable to read [] Unable to drive [] Unable to eat/drink [] Unable to sleep [] Unable to be with family [] Patient intubated [] Other: Summary Time spent with patient 5 min
[2023-04-23] MEDS: amlodipine 5 mg Tablet PO (10:16)
[2023-04-23] MEDS: aspirin 81 mg EC Tablet PO (10:16)
[2023-04-23] MEDS: heparin 5,000 unit/mL INJ 1 mL 5000 UNIT SUBCUT (10:16)
--- NOTE | 2023-04-23 12:55 | PM.DCS ---
Discharge Providers Date of Admission: 04/19/23 12:15 Date of Discharge: April 23, 2023 Attending Provider at Admission: Enrique Horton MD Attending Provider at Discharge: Quentin Harp Primary Care Provider: Joseph Flores DO Diagnoses at Discharge Discharge Diagnosis (1) Cerebrovascular accident (CVA) involving left cerebral hemisphere: Status: Acute (2) Essential (primary) hypertension: Status: Chronic (3) Tobacco dependency: Status: Acute Reason for Visit Reason for Visit: stroke symptoms Hospital Course Hospital Course Pleasant 52-year-old gentleman with history of hypertension, history of smoking, although has been cutting down and quitting, although does not chew tobacco, presented with right-sided weakness, difficulty speaking, right facial droop, confusion, with suspicion of acute CVA was treated with tPA after assessment by CT head. Has shown partial improvement in his symptoms. After initial permissive hypertension restarted on amlodipine, does state that he ran out of the medications at home, will benefit long-term from optimization of hypertension, target 120/80. A1c was assessed, 5.7, started on aspirin, statin. Persistent right-sided weakness, mild dysarthria, was assessed by PT, OT, ST, has been gradually improving, progressing to being able to continue on outpatient basis. Please reassess renal function, noted mild MAVERICK, creatinine 1.3. He has not had any myalgia, myopathy symptoms, CK is requested after being started on statin. UA was unremarkable. Physical Exam Const: COMMON NORMALS: patient oriented x3 and alert GENERAL APPEARANCE: cooperative ORIENTATION/CONSCIOUSNESS: Yes awake HENMT: COMMON NORMALS: oropharynx normal Neck/C-Spine: COMMON NORMALS: no JVD Resp: COMMON NORMALS: normal respiratory effort and clear to auscultation bilaterally AUSCULTATION: clear to auscultation bilaterally Cardio: COMMON NORMALS: no JVD, regular rhythm, S1 normal heart sound present, S2 normal heart sound present and No murmurs present (Cardio) RHYTHM: regular rhythm HEART SOUNDS: S1 normal heart sound present and S2 normal heart sound present GI: COMMON NORMALS: Normal to inspection, nondistended, normoactive bowel sounds present, Soft to palpation and non-tender PALPATION: Yes Soft to palpation Extremity: COMMON NORMALS: no joint enlargement and no pedal edema Neuro: COMMON NORMALS: patient oriented x3 and moves all extremities SENSORIUM/ORIENTATION: Yes alert OTHER: He is awake and alert, following directions readily. Oriented. Mild dysarthria. No difficulty with horizontal tracking. Visual mascorro full to confrontation. No visual extinction. Weakness right upper and lower extremity with drift. Reports sensation is symmetrical. No sensory extinction. Skin: COMMON NORMALS: no rashes or lesions noted NARRATIVE SKIN EXAM: Macular spots/ reportschigger bites on bilateral lower extremities. No diffuse or confluent rashes. GENERAL SKIN EXAM: no rashes or lesions noted Discharge Data Studies Completed and Pending Completed Studies During Hospitalization Category Date Time Status CT head thrombolytic 83420 Stat Cat Scan 04/19/23 07:[address] head wo con* [id number] Routine Cat Scan 04/20/23 09:00 Completed CTA head neck [CT angio headneck* [id number]] Stat Cat Scan 04/19/23 08:14 Completed CV. echo complete* [id number] Routine Ultrasound 04/20/23 06:00 Completed Pending at discharge Category Date Time Status Basic Metabolic Panel AM LABS Lab 04/24/23 04:00 Ordered Basic Metabolic Panel AM LABS Lab 04/25/23 04:00 Ordered Complete Blood Count w/Auto AM LABS Lab 04/24/23 04:00 Ordered Complete Blood Count w/Auto AM LABS Lab 04/25/23 04:00 Ordered Radiology Impressions Head CT 04/20/23 09:00 IMPRESSION: No acute intracranial process. Laboratory Results WBC 9.84 10^3/uL (3.29-11.43) 04/23/23 05:33 RBC 5.00 10^6/uL (3.85-5.65) 04/23/23 05:33 Hgb 16.70 g/dL (11.27-16.99) 04/23/23 05:33 Hct 47.8 % (37-53) 04/23/23 05:33 MCV 95.6 fl (82-101) 04/23/23 05:33 MCH 33.4 pg (27-33) H 04/23/23 05:33 MCHC 34.9 g/dL (30-55) 04/23/23 05:33 RDW 11.8 % (12.1-15.1) L 04/23/23 05:33 Plt Count 212 10^3/cmm (157-399) 04/23/23 05:33 MPV 9.0 fL (7.4-10.4) 04/23/23 05:33 Neut % (Auto) 49.4 % 04/23/23 05:33 Lymph % (Auto) 34.6 % 04/23/23 05:33 Dewitt % (Auto) 9.3 % 04/23/23 05:33 Eos % (Auto) 5.4 % 04/23/23 05:33 Baso % (Auto) 0.9 % 04/23/23 05:33 Neut # (Auto) 4.86 10^3/uL (1.8-7.7) 04/23/23 05:33 Lymph # (Auto) 3.4 10^3/uL (0.8-4.8) 04/23/23 05:33 Dewitt # (Auto) 0.9 10^3/uL (0.2-0.9) 04/23/23 05:33 Eos # (Auto) 0.5 10^3/uL (0.0-0.8) 04/23/23 05:33 Baso # (Auto) 0.1 10^3/uL (0.0-0.1) 04/23/23 05:33 Nucleated RBC % (auto) 0 % 04/23/23 05:33 Nucleated RBCs # 0.0 /100WBC 04/23/23 05:33 PT 13.30 SECONDS (12.1-14.9) 04/19/23 08:06 INR 0.98 (0.8-1.2) 04/19/23 08:06 APTT 28.7 SECONDS (23.9-36.7) 04/19/23 08:06 Sodium 140 mmol/L (136-145) 04/23/23 05:33 Potassium 4.8 mmol/L (3.5-5.1) 04/23/23 05:33 Chloride 103 mmol/L (98-107) 04/23/23 05:33 Carbon Dioxide 29 mmol/L (22-29) 04/23/23 05:33 Anion Gap 12.8 (5-19) 04/23/23 05:33 BUN 17 mg/dL (6-20) 04/23/23 05:33 Creatinine 1.3 mg/dL (0.7-1.2) H 04/23/23 05:33 GFR Calculation 58.0 mL/min (90-130) L 04/23/23 05:33 Glucose 121 mg/dL (65-115) H 04/23/23 05:33 POC Glucose 135 mg/dL (70-110) H 04/19/23 08:09 Estimat Average Glucose 111 04/19/23 08:06 Hemoglobin A1c 5.5 % (4.0-6.0) 04/19/23 08:06 Calculated Osmolality 293 mOsm/kg (285-295) 04/23/23 05:33 Calcium 9.2 mg/dL (8.5-10.5) 04/23/23 05:33 Total Bilirubin 0.7 mg/dL (0.15-1.2) 04/22/23 04:56 AST 20 U/L (0-40) 04/22/23 04:56 ALT 27 U/L (0-41) 04/22/23 04:56 Alkaline Phosphatase 125 U/L (40-130) 04/22/23 04:56 C-Reactive Protein 3.6 mg/L (0.0-4.9) 04/23/23 05:33 Total Protein 7.1 g/dL (6.6-8.7) 04/22/23 04:56 Albumin 4.3 g/dL (3.5-5.2) 04/22/23 04:56 Globulin 2.8 g/dL (1.3-4.6) 04/22/23 04:56 Triglycerides 131 mg/dL (0-150) 04/20/23 03:12 Cholesterol 160 mg/dL (0-200) 04/20/23 03:12 LDL Cholesterol, Calc 99 mg/dL (50-129) 04/20/23 03:12 HDL Cholesterol 35 mg/dL (60-100) L 04/20/23 03:12 LDL/HDL Ratio 2.83 RATIO (0.00-3.22) 04/20/23 03:12 Cholesterol/HDL Ratio 4.57 mg/dL (1.0-5.00) 04/20/23 03:12 TSH 0.60 uIU/mL (0.27-4.20) 04/19/23 08:06 Urine Color Yellow (Yellow) 04/19/23 08:50 Urine Appearance Clear (CLEAR) 04/19/23 08:50 Urine pH 6 (5-7) 04/19/23 08:50 Ur Specific Sutherland 1.005 (1.005-1.030) 04/19/23 08:50 Urine Protein Neg (Negative) 04/19/23 08:50 Urine Glucose (UA) Norm (Normal) 04/19/23 08:50 Urine Ketones Negative (Negative) 04/19/23 08:50 Urine Blood Neg (Negative) 04/19/23 08:50 Urine Nitrate Negative (Negative) 04/19/23 08:50 Urine Bilirubin Neg (Negative) 04/19/23 08:50 Urine Urobilinogen Norm mg/dL (Negative) 04/19/23 08:50 Ur Leukocyte Esterase Negative (Negative) 04/19/23 08:50 Urine Opiates Screen Negative ng/mL (Negative) 04/19/23 08:50 Ur Barbiturates Screen Negative ng/mL (Negative) 04/19/23 08:50 Ur Phencyclidine Scrn Negative ng/mL (Negative) 04/19/23 08:50 Ur Amphetamines Screen Negative ng/mL (Negative) 04/19/23 08:50 U Benzodiazepines Scrn Negative ng/mL (Negative) 04/19/23 08:50 Urine Cocaine Screen Negative ng/mL (Negative) 04/19/23 08:50 U Marijuana (THC) Screen Negative ng/mL (Negative) 04/19/23 08:50 Vitals Last Vital Signs Temp 98.1 F 04/23/23 11:14 Pulse 69 04/23/23 11:14 Resp 15 04/23/23 11:14 BP 132/80 04/23/23 11:14 Pulse Ox 95 04/23/23 11:14 O2 Del Method Room Air 04/23/23 11:14 Discharge Plan Discharge Patient Disposition: Home Condition: Stable Prescriptions: New atorvastatin 40 mg Tablet 80 mg PO BEDTIME Qty: 180 0RF aspirin 81 mg Tablet,Delayed Release (Dr/Ec) 81 mg PO DAILY Qty: 90 0RF Continued [place] PDR 447 mg Capsule 447 mg PO QAM lakia extract 250 mg Capsule 250 mg PO QAM turmeric 400 mg Capsule 40 mg PO QAM amlodipine 5 mg tablet 5 mg PO DAILY 90 Days Qty: 90 2RF Discharge Orders: Discharge Order (Routine); Ordered 04/23/23 Ordered By: Quentin Harp Other Ambulatory Orders: Occupational Therapy Eval and Treat Outpatient (Order) Timeframe: 3 Days Facility: [facility] - Location: Occupational Therapy [place] Ordered By: Quentin Harp Physical Therapy Eval and Treat Outpatient (Order) Timeframe: 3 Days Facility: [facility] - Location: Physical Therapy [place] Ordered By: Quentin Harp Speech Language Pathology Eval and Treat Outpatient (Order) Timeframe: 3 Days Facility: [facility] - Location: Speech Therapy [place] Ordered By: Quentin Harp Referrals: Joseph Flores DO [Primary Care Provider] - 04/29/23 10:30 am () John Bowser MD [Physician] - (We have notified your physician's clinic of the need for a follow-up appointment to be scheduled. If you have not heard from them within the next 2 business days, please call them directly. You may also reach out to our hotel assistant manager at [phone] and she can assist you.) Discharge Diet: Cardiac Discharge Activity: As per PT/OT instructions Patient Instructions: Aspirin (By mouth), Atorvastatin (By mouth), How to Stop Smoking (GEN), Cigarette Smoking and Your Health (GEN), Ischemic Stroke (GEN), Chronic Hypertension (GEN), Opioid Safety Activity Restrictions/Additional Instructions: Continue outpatient physical therapy, patient will typically speech therapy, continue aspirin, cholesterol medication, continue blood pressure medication, check your blood pressure 3 times daily, write down values or if your blood pressure cuff is able to stabilize bring your blood pressure cuff to your next appointment. Continue to optimize cardiovascular risk factors with your primary doctor and with neurology. Follow-up with neurology in office for reassessment and additional recommendations. Seek medical attention in case of any worsening or new concerning symptoms. Avoid any NSAIDs like ibuprofen, Aleve, etc. Please have your primary doctor reassess your kidney function due to mild acute kidney injury, creatinine 1.3. Discharge Attestations Time Spent in Discharge Care*: greater than 30 min Quality Metrics Clinical Quality Measures [ Cerebrovascular Accident { Contraindication to Antithrombotic: None; antithrombotic prescribed; Contraindication to Anticoagulation: None; anticoagulation prescribed; Contraindication to Statin: None; Statin prescribed;}] Coding Level of Care Code 97850 Total time (in minutes) for Discharge: 40 Diagnoses Cerebrovascular accident (CVA) involving left cerebral hemisphere I63.9 Essential (primary) hypertension I10 Tobacco dependency F17.200
[2023-04-23 14:00] LABS: Creatine Phosphokinase 98 U/L (39-308)
== END 2023-04-23 14:27 | disposition home or self-care (01) ==
LOC: ER 09:52 → ICU 13:48 → MEDSURG 04-20 15:29
PROVIDERS: Student in an Organized Health Care Education/Training Program; Admitting Provider Internal Medicine; Emergency Provider Family Medicine; PCP Family Medicine; Visit Provider Internal Medicine
DX: I63.9 Cerebral infarction, unspecified (principal); I10 Essential (primary) hypertension; F17.200 Nicotine dependence, unspecified, uncomplicated
CPT/HCPCS: 36415; 36416; 70450; 70496; 70498; 80048; 80053; 80061; 80306; 81003; 82550; 82962; 83036; 84443; 85025; 85610; 85730; 86140; 92507; 92523; 92526; 92610; 93005; 93306; 96365; 96366; 96367; 96372; 97110; 97112; 97116; 97161; 97166; 97530; 97535; 99291; G0378; J1644; J2997; J7030; Q9967

== ENCOUNTER 2023-04-29 06:00 | Outpatient (RCR) | payer OTHER, SELFPAY | END 2023-05-14 23:59 | disposition home or self-care (01) | LOC: TR3 06:00 | PROVIDERS: PCP Family Medicine; Visit Provider Internal Medicine | DX: I63.9 Cerebral infarction, unspecified (principal); I69.322 Dysarthria following cerebral infarction | CPT/HCPCS: 92507; 92523; 97110; 97116; 97163 ==

== ENCOUNTER → 2023-05-06 14:26 | Outpatient (BNVA) | payer OTHER, SELFPAY | PROVIDERS: PCP Family Medicine; Visit Provider Psychiatry & Neurology Neurology | DX: I63.9 Cerebral infarction, unspecified (principal); E78.2 Mixed hyperlipidemia | CPT/HCPCS: 36415; 81241; 83090; 85210; 85613; 85730; 86146; 86147 ==

== ENCOUNTER 2023-05-15 06:00 | Outpatient (RCR) | payer OTHER, SELFPAY | END 2023-06-13 23:59 | disposition home or self-care (01) | LOC: TR3 06:00 | PROVIDERS: PCP Family Medicine; Visit Provider Internal Medicine | DX: I69.322 Dysarthria following cerebral infarction (principal); I63.9 Cerebral infarction, unspecified | CPT/HCPCS: 92507; 97110 ==

== ENCOUNTER 2023-06-14 06:00 | Outpatient (RCR) | payer OTHER, SELFPAY | END 2023-07-14 23:59 | disposition home or self-care (01) | LOC: TR3 06:00 | PROVIDERS: PCP Family Medicine; Visit Provider Internal Medicine | DX: I63.9 Cerebral infarction, unspecified (principal); I69.322 Dysarthria following cerebral infarction | CPT/HCPCS: 92507; 97110 ==

== ENCOUNTER 2023-07-15 06:00 | Outpatient (RCR) | payer OTHER, SELFPAY | END 2023-08-14 23:59 | disposition home or self-care (01) | LOC: TR3 06:00 | PROVIDERS: PCP Family Medicine; Visit Provider Internal Medicine | DX: I63.9 Cerebral infarction, unspecified (principal); I69.322 Dysarthria following cerebral infarction | CPT/HCPCS: 97110 ==

== ENCOUNTER 2023-08-15 06:00 | Outpatient (RCR) | payer OTHER, SELFPAY | END 2023-08-16 23:59 | disposition home or self-care (01) | LOC: TR3 06:00 | PROVIDERS: PCP Family Medicine; Visit Provider Internal Medicine | DX: I63.9 Cerebral infarction, unspecified (principal); I69.322 Dysarthria following cerebral infarction | CPT/HCPCS: 97110 ==

== ENCOUNTER → 2024-02-12 11:01 | Outpatient (BNVA) | payer SELFPAY | PROVIDERS: PCP Family Medicine; Visit Provider Family Medicine | DX: I63.9 Cerebral infarction, unspecified (principal); E78.2 Mixed hyperlipidemia; I10 Essential (primary) hypertension; Z12.5 Encounter for screening for malignant neoplasm of prostate; E55.9 Vitamin D deficiency, unspecified | CPT/HCPCS: 80053; 80061; 82306; 83036; 84443; 85025; G0103 ==

== ENCOUNTER → 2024-07-23 15:26 | Outpatient (BNVA) | payer SELFPAY | PROVIDERS: PCP Family Medicine; Visit Provider Orthopaedic Surgery | DX: M54.9 Dorsalgia, unspecified (principal) | CPT/HCPCS: 72110 ==

== ENCOUNTER → 2024-07-30 13:15 | Outpatient (BNVA) | payer SELFPAY | PROVIDERS: PCP Family Medicine; Visit Provider Physician Assistant | DX: M17.0 Bilateral primary osteoarthritis of knee; M23.305 Other meniscus derangements, unspecified medial meniscus, unspecified knee | CPT/HCPCS: 73560; 73565 ==

== ENCOUNTER → 2025-04-27 14:00 | Outpatient (BNVA) | payer SELFPAY | PROVIDERS: PCP Family Medicine; Visit Provider Family Medicine | DX: I10 Essential (primary) hypertension (principal); Z13.6 Encounter for screening for cardiovascular disorders; Z12.5 Encounter for screening for malignant neoplasm of prostate | CPT/HCPCS: 80053; 84443; 85025; G0103 ==

== ENCOUNTER 2025-05-05 15:47 | Outpatient (CLI) | payer SELFPAY ==
--- NOTE | 2025-05-05 16:15 | USR_ITS ---
PROCEDURE INFORMATION: Exam: US Soft Tissue Head and Neck, TI-RADS Exam date and time: 05/05/2025 4:08 PM Age: 54 years old Clinical indication: Condition or disease; Thyroid disorder; Other: Thyroid nodule TECHNIQUE: Imaging protocol: Real-time ultrasound scan of the neck with image documentation. Exam focused on the thyroid. COMPARISON: CT angio headneck* [id number] 04/19/2023 8:34 AM FINDINGS: Right thyroid lobe: Not enlarged. Left thyroid lobe: Not enlarged. Isthmus: Not thickened. Thyroid nodule 1 Size: 1.9 x 1.5 x 1.8 cm Thyroid nodule 1 Location: Inferior right thyroid Thyroid nodule 1 Composition: Predominantly solid with a few cystic foci Thyroid nodule 1 Echogenicity: Isoechoic Thyroid nodule 1 Shape: Wider than tall Thyroid nodule 1 Margins: Smooth to ill-defined Thyroid nodule 1 Echogenic foci: A few punctate echogenic foci are seen Thyroid nodule 1 Points: 6 Thyroid nodule 2 Size: 3.0 x 2.9 x 2.9 cm Thyroid nodule 2 Location: Inferior left thyroid Thyroid nodule 2 Composition: Solid Thyroid nodule 2 Echogenicity: Isoechoic to slightly hypoechoic Thyroid nodule 2 Shape: Wider than tall Thyroid nodule 2 Margins: Smooth to ill-defined Thyroid nodule 2 Echogenic foci: None Thyroid nodule 2 Points: 4 Thyroid nodule 3 Size: 0.9 x 0.5 x 1.0 cm Thyroid nodule 3 Location: Superior left thyroid Thyroid nodule 3 Composition: Solid Thyroid nodule 3 Echogenicity: Isoechoic Thyroid nodule 3 Shape: Wider than tall Thyroid nodule 3 Margins: Smooth Thyroid nodule 3 Echogenic foci: Yes Thyroid nodule 3 Points: 6 Thyroid nodule 4 Size: 4.2 x 2.8 x 2.8 cm Thyroid nodule 4 Location: Mid to inferior left thyroid Thyroid nodule 4 Composition: Solid Thyroid nodule 4 Echogenicity: Isoechoic to slightly hypoechoic Thyroid nodule 4 Shape: Wider than tall Thyroid nodule 4 Margins: Smooth Thyroid nodule 4 Echogenic foci: None Thyroid nodule 4 Points: 4 Lymph nodes: Right cervical lymph node measures 1.1 x 0.6 x 1.2 cm. Left cervical lymph node measures 1.0 x 0.4 x 1.7 cm. US/US thyroid [id number] IMPRESSION: Multiple bilateral thyroid nodules as detailed above. TI-RADS category TR4, Moderately Suspicious. Fine needle aspiration is recommended of the right thyroid nodule and the 2 largest left thyroid nodules. (Reference: Rambo) REFERENCES: Rambo RUDOLPH, Britton HUYNH, Stuart UMANA et al. ACR Thyroid Imaging, Reporting and Data System (TI-RADS): White Paper of the ACR TI-RADS Committee. J Am Leslye Radiol. 2017; 14: 587-595.
== END 2025-05-05 15:48 | disposition home or self-care (01) ==
LOC: RAD 15:48
PROVIDERS: PCP Family Medicine; Visit Provider Family Medicine
DX: E04.2 Nontoxic multinodular goiter (principal)
CPT/HCPCS: 76536

== ENCOUNTER 2025-05-28 10:07 | Emergency (ER) | payer SELFPAY ==
--- NOTE | 2025-05-28 10:19 | CT_ITS ---
WS: [id number] CT HEAD NONCONTRAST HISTORY: Visual changes left leg weakness TECHNIQUE: Contiguous axial imaging performed through the brain. Bone and soft tissue windows. Sagittal and coronal reformats reviewed. All CT scans at [facility] use at least one of these dose optimization techniques: automated exposure control; mA and/or kV adjustment per patient size (includes targeted exams where dose is matched to clinical indication); or iterative reconstruction. DLP: 1097.28 mGy.cm COMPARISON: 04/20/2023, 10/08/2021 No acute intracranial hemorrhage, midline shift or mass effect. Mild atrophy and small vessel disease. There are a few areas of subtle decreased attenuation in the RIGHT occipital lobe which are stable since 10/08/2021 and may be from prior ischemia. Ventricles: Normal size with no hydrocephalus. No inferior displacement of the cerebellar tonsils. Paranasal sinuses: Small air-fluid levels in the maxillary sinuses. Moderate mucoperiosteal thickening in the ethmoid air cells. Mastoid air cells: Well pneumatized. Calvarium and scalp: Skull is intact with no soft tissue edema or swelling. CT/CT head wo con* [id number] IMPRESSION: 1. No acute intracranial hemorrhage or edema. 2. Mild cerebral and cerebellar atrophy and small vessel disease. Stable nonco ntrast CT head since 04/20/2023. 3. Bilateral maxillary sinusitis. Additional ethmoid air cell disease.
--- NOTE | 2025-05-28 10:28 | W.ED.GENADLT ---
HPI - General Adult General: Chief complaint: Eye Problems Stated complaint: pressure behind eyes dizzy R leg pain Time Seen by Provider: 05/28/25 10:19 History of Present Illness: 54-year-old male presents emergency room with complaints of visual difficulty and right leg weakness. In 2022 he had a stroke with right-sided deficits that was mostly recovered but he states his vision has been difficult ever since then. He recently traveled to [place] his father had he has been under a lot of stress and he is noticing worsening symptoms leg the last several days and the vision last couple of days with significant worsening yesterday into today. He mostly is noticing difficulty tracking with both eyes but if he covers 1 eye or the other he is able to see normally. He decided that with right leg like the LAD on it TV the red light signaling it was on would almost be double but the rest of the TV was normal. Recovered either the left or the right eye the red LED light on the TV control would appear normal. He has not had any other problems no dizziness. During the time I examined him he has a voluntary like tremor where he shaking his leg when I asked him about it he stopped immediately he related it to being stress and anxiety. NIH done when I first assessed the patient is a 0. Associated symptoms: Deny chest pain, dyspnea or rash Related Data Home Medications ?Medication ?Instructions ?Recorded ?Confirmed capsicum (cayenne) 447 mg capsule 447 mg PO QAM 04/19/23 05/31/25 lakia (Zingiber officinalis) 250 250 mg PO QAM 04/19/23 05/31/25 mg capsule (lakia extract) apple cider vinegar 600 mg capsule mg PO DAILY 04/27/25 05/31/25 Previous Rx's ?Medication ?Instructions ?Recorded amlodipine 10 mg tablet 10 mg PO DAILY #90 tabs 04/27/25 amoxicillin 875 mg-potassium 1 tab PO BID #20 tabs 05/28/25 clavulanate 125 mg tablet aspirin 81 mg tablet,delayed 81 mg PO DAILY #30 tabs 05/28/25 release clopidogrel 75 mg tablet 75 mg PO DAILY #30 tabs 05/31/25 Allergies Allergy/AdvReac Type Severity Reaction Status Date / Time No Known Allergies Allergy Verified 05/31/25 15:17 Review of Systems Const: Denies: fever(s) or chills Card: Denies: chest pain Resp: Denies: dyspnea GI: Denies: abdominal pain : Denies: dysuria, urinary frequency or urinary urgency Musc: Denies: neck pain or back pain Skin/Breast: Denies: rash PFSH ED PFSH: Medical History ACL injury tear right and left knees Anxiety and depression Essential (primary) hypertension Environmental and seasonal allergies Surgical History History of neck surgery Scwannoma H/O wrist surgery right wrist 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 Family History Other Cancer Hypertension Denies family history of Diabetes Dementia Stroke Social History Smoking and tobacco/nicotine status: current every day tobacco/nicotine user cigarettes Second hand smoke exposure: No Alcohol intake: current Alcohol intake frequency: 0-2 Drinks per Day Alcohol type: beer Substance/Drug Use: never Adopted: No Caregiver/support person: No Lives independently: Yes Household members: none Housing: Other Marital status: Single Number of children: 0 service: No Current occupational status: employed Do you think of yourself as: Straight/Heterosexual Current gender identity: Male Physical Exam Const: COMMON NORMALS: no acute distress GENERAL APPEARANCE: cooperative and comfortable ORIENTATION/CONSCIOUSNESS: Yes awake, Yes oriented to person, Yes oriented to place and Yes oriented to time HENMT: COMMON NORMALS: normocephalic, atraumatic and hearing grossly normal bilaterally HEAD & SCALP: normocephalic and atraumatic Eye: OTHER: No nystagmus, pupils equal react light extraocular and some fat tach Resp: COMMON NORMALS: normal respiratory effort, No retractions, No use of accessory muscles and clear to auscultation bilaterally AUSCULTATION: clear to auscultation bilaterally Cardio: COMMON NORMALS: regular rate, regular rhythm and No murmurs present (Cardio) RATE: regular rate RHYTHM: regular rhythm GI: COMMON NORMALS: Soft to palpation and No hepatosplenomegaly present AUSCULTATION: Yes normoactive bowel sounds PALPATION: Yes Soft to palpation, No Tenderness to palpation present (GI), No Guarding due to palpation present (GI) and Yes No hepatosplenomegaly present Extremity: COMMON NORMALS: normal to inspection, capillary refill normal, no clubbing, cyanosis or edema, no calf tenderness and no pedal edema Neuro: SENSORIUM/ORIENTATION: Yes oriented to person, Yes oriented to place and Yes oriented to time Skin: COMMON NORMALS: no rashes or lesions noted GENERAL SKIN EXAM: no rashes or lesions noted Course Vital Signs: Vital signs: Vital Signs Temperature 97.8 F 05/28/25 10:29 Pulse Rate 76 05/28/25 13:05 Respiratory Rate 20 H 05/28/25 13:05 Blood Pressure 149/91 05/28/25 13:05 Pulse Oximetry 95 05/28/25 13:05 Oxygen Delivery Me thod Room Air 05/28/25 11:35 MDM - General Adult Medical Decision Making Neurologic exam normal. No focal neurologic deficit noted CT of the head is negative. He does have a bilateral maxillary sinusitis. He has a history of completed stroke there is no evidence of new stroke at this time. His right sided deficits are from his previous stroke they seem to be exacerbated today but now he feels like he is back at his baseline. He also reports having had some visual disturbance in the past with his previous stroke. There is no sign of acute illness his white count is normal. Neurologically he seems to be back at his baseline and we will treat him for his acute sinusitis and Medical Records I reviewed the patient's medical records. Lab Data I reviewed the patient's lab results. 05/28/25 10:30 05/28/25 10:[address] 05/28/25 10:19 IMPRESSION: 1. No acute intracranial hemorrhage or edema. 2. Mild cerebral and cerebellar atrophy and small vessel disease. Stable noncontrast CT head since 04/20/2023. 3. Bilateral maxillary sinusitis. Additional ethmoid air cell disease. Laboratory Results WBC 8.28 10^3/uL (3.29-11.43) 05/28/25 10:30 RBC 5.10 10^6/uL (3.85-5.65) 05/28/25 10:30 Hgb 16.30 g/dL (11.27-16.99) 05/28/25 10:30 Hct 46.5 % (37-53) 05/28/25 10:30 MCV 91.2 fl (82-101) 05/28/25 10:30 MCH 32.0 pg (27-33) 05/28/25 10:30 MCHC 35.1 g/dL (30-55) 05/28/25 10:30 RDW 11.6 % (12.1-15.1) L 05/28/25 10:30 Plt Count 279 10^3/cmm (157-399) 05/28/25 10:30 MPV 8.9 fL (7.4-10.4) 05/28/25 10:30 Neut % (Auto) 66.9 % 05/28/25 10:30 Lymph % (Auto) 23.6 % 05/28/25 10:30 [place] % (Auto) 6.6 % 05/28/25 10:30 Eos % (Auto) 1.9 % 05/28/25 10:30 Baso % (Auto) 0.6 % 05/28/25 10:30 Neut # (Auto) 5.54 10^3/uL (1.8-7.7) 05/28/25 10:30 Lymph # (Auto) 2.0 10^3/uL (0.8-4.8) 05/28/25 10:30 [place] # (Auto) 0.6 10^3/uL (0.2-0.9) 05/28/25 10:30 Eos # (Auto) 0.2 10^3/uL (0.0-0.8) 05/28/25 10:30 Baso # (Auto) 0.1 10^3/uL (0.0-0.1) 05/28/25 10:30 Nucleated RBC % (auto) 0 % 05/28/25 10:30 Nucleated RBCs # 0.0 /100WBC 05/28/25 10:30 Sodium 139 mmol/L (136-145) 05/28/25 10:30 Potassium 4.2 mmol/L (3.5-5.1) 05/28/25 10:30 Chloride 101 mmol/L (98-107) 05/28/25 10:30 Carbon Dioxide 24 mmol/L (22-29) 05/28/25 10:30 Anion Gap 18.2 (5-19) 05/28/25 10:30 BUN 13 mg/dL (6-20) 05/28/25 10:30 Creatinine 1.0 mg/dL (0.7-1.2) 05/28/25 10:30 GFR Calculation 77.9 mL/min (90-130) L 05/28/25 10:30 Glucose 124 mg/dL (65-115) H 05/28/25 10:30 Calculated Osmolality 290 mOsm/kg (285-295) 05/28/25 10:30 Calcium 9.7 mg/dL (8.5-10.5) 05/28/25 10:30 Total Bilirubin 0.5 mg/dL (0.15-1.2) 05/28/25 10:30 AST 17 U/L (0-40) 05/28/25 10:30 ALT 24 U/L (0-41) 05/28/25 10:30 Alkaline Phosphatase 139 U/L (40-130) H 05/28/25 10:30 Total Protein 7.5 g/dL (6.6-8.7) 05/28/25 10:30 Albumin 4.8 g/dL (3.5-5.2) 05/28/25 10:30 Globulin 2.7 g/dL (1.3-4.6) 05/28/25 10:30 All radiology interpretation(s) finalized by discharge Discharge Plan Discharge Patient Disposition: Home Clinical Impression: Sinusitis, Hx of completed stroke Condition: Stable Prescriptions: New aspirin 81 mg tablet,delayed release (DR/EC) 81 mg PO DAILY Qty: 30 0RF amoxicillin-pot clavulanate 875-125 mg tablet 1 tab PO BID Qty: 20 0RF No Action apple cider vinegar 600 mg capsule PO DAILY amlodipine 10 mg tablet 10 mg PO DAILY Qty: 90 1RF clopidogrel 75 mg tablet 75 mg PO DAILY Qty: 30 5RF capsicum (cayenne) 447 mg Capsule 447 mg PO QAM lakia extract 250 mg Capsule 250 mg PO QAM Discharge Orders: Discharge ED (Routine); Ordered 05/28/25 Ordered By: Connor Quach Referrals: Gudelia Patten DO [Primary Care Provider, Family Practice] Discharge Diet: Usual diet Discharge Activity: Resume usual activity Patient Instructions: Opioid Safety, Pain Management, Patient Portal & Todd Instructions Activity Restrictions/Additional Instructions: [facility]. It is very important that you follow up as instructed or that you return to the Emergency Department should you have concerns or if your condition changes or worsens in any way. Emergency department visits are focused on emergent conditions, in some cases you may require further evaluation on an outpatient basis. You are seen in the emergency room with complaints of difficulty with vision and weakness in your leg your stroke score was 0 CT of your head showed sinusitis but no other acute abnormalities. Because you have a history of a previous stroke recommend that you restart clopidogrel and aspirin daily. You had mentioned that you had difficulty with statins in the past you should follow-up with your primary care doctor to review restarting on statins as well as monitoring your blood pressure. Blood pressure was mildly elevated while you are in the emergency room today but did not warrant initiating a medication. Finally on the CT it did show evidence of a sinusitis we will put you on an oral antibiotic for this. Return if you have further problems. (Please note that included in your discharge packet is information concerning opioid safety and pain management. This information is given to all patients were discharged from the ER regardless of their discharge diagnosis or the medicines they usually take or are prescribed.) Print Language: Bahraini Coding Level of Care Code ED Physical Meteorologist for Kamila Crawley NIH stroke score NIHSS Level Of Consciousness - 1a: 0 Level Of Consciousness Questions - 1b: Both Correct Level Of Consciousness Commands - 1c: Both Correct Best Gaze - 2: Normal Visual Fisher - 3: No Visual Loss Facial Palsy - 4: Normal Motor Arm Right - 5: No Drift Motor Arm Left - 5: No Drift Motor Leg Right - 6: No Drift Motor Leg Left - 6: No Drift Limb Ataxia - 7: Absent Sensory - 8: Normal Best Language - 9: No Aphasia Dysarthia - 10: Normal Extinction And Inattention - 11: 0 Score Total Score: 0
[2025-05-28 10:29] VITALS: BP 196/93; PULSE 100; RESP 18; TEMP 36.6; O2SAT 96; BMI 30.8
--- NOTE | 2025-05-28 10:44 | ECG_ITS ---
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 Measurements Intervals [place] Rate: 86 P: 38 NM: 162 QRS: 38 QRSD: 93 T: 42 QT: 346 QTc: 414 Interpretive Statements SINUS RHYTHM Compared to ECG 04/19/2023 08:55:33 No significant changes Electronically Signed On 05-28-2025 13:05:01 MOVIE PRODUCER by Ilya Packer M.D. [email or web address]
[2025-05-28 10:52] LABS: Hematocrit 46.5 % (37-53); Hemoglobin 16.30 g/dL (11.27-16.99); Mean Corpuscular HGB Conc 35.1 g/dL (30-55); Mean Corpuscular Hemoglobin 32.0 pg (27-33); Mean Corpuscular Volume 91.2 fl (82-101); Nucleated Red Blood Cells % 0 %; Platelet Count 279 10^3/cmm (157-399); Red Blood Count 5.10 10^6/uL (3.85-5.65); White Blood Count 8.28 10^3/uL (3.29-11.43)
[2025-05-28 10:58] VITALS: BP 140/96; PULSE 86; O2SAT 94
[2025-05-28 11:03] LABS: Alanine Aminotransferase 24 U/L (0-41); Albumin Level 4.8 g/dL (3.5-5.2); Alkaline Phosphatase 139 U/L (40-130); Anion Gap 18.2 (5-19); Aspartate Amino Transferase 17 U/L (0-40); Blood Urea Nitrogen 13 mg/dL (6-20); Calcium 9.7 mg/dL (8.5-10.5); Carbon Dioxide 24 mmol/L (22-29); Chloride 101 mmol/L (98-107); Globulin 2.7 g/dL (1.3-4.6); Glucose 124 mg/dL (65-115); Osmolality Calculated 290 mOsm/kg (285-295); Potassium 4.2 mmol/L (3.5-5.1); Sodium 139 mmol/L (136-145); Total Protein 7.5 g/dL (6.6-8.7)
[2025-05-28 11:35] VITALS: BP 114/90; PULSE 79; RESP 14; O2SAT 93
--- NOTE | 2025-05-28 12:15 | PC.NURSE ---
pt was able to ambulate well, did feel like R leg had a small dragging feeling. ED physician notified
[2025-05-28 13:05] VITALS: BP 149/91; PULSE 76; RESP 20; O2SAT 95
== END 2025-05-28 13:11 | disposition home or self-care (01) ==
PROVIDERS: Emergency Provider Family Medicine; PCP Family Medicine
DX: J32.9 Chronic sinusitis, unspecified (principal); Z86.73 Personal history of transient ischemic attack (TIA), and cerebral infarction without residual deficits; Z79.02 Long term (current) use of antithrombotics/antiplatelets; F17.210 Nicotine dependence, cigarettes, uncomplicated; I10 Essential (primary) hypertension
CPT/HCPCS: 36415; 70450; 80053; 85025; 93005; 99284

== ENCOUNTER 2025-06-06 00:55 | Emergency (ER) | payer SELFPAY ==
[2025-06-06 01:06] VITALS: BP 169/95; PULSE 97; RESP 18; TEMP 37.2; O2SAT 96; BMI 30.7
--- NOTE | 2025-06-06 01:15 | ECG_ITS ---
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 Measurements Intervals [place] Rate: 94 P: 53 [place]: 155 QRS: 45 QRSD: 97 T: 47 QT: 343 QTc: 429 Interpretive Statements SINUS RHYTHM Compared to ECG 05/28/2025 10:50:17 No significant changes Electronically Signed On 06-06-2025 17:37:41 FOOD CROPS FARM HAND by Nelly Dorado M.D. [email or web address]
[2025-06-06 01:35] VITALS: BP 153/94; RESP 17; O2SAT 96
[2025-06-06 01:42] VITALS: BP 153/94; PULSE 93; RESP 17; O2SAT 94
--- NOTE | 2025-06-06 01:44 | CTR_ITS ---
PROCEDURE INFORMATION: Exam: CTA Head With Contrast, Arteriography Exam date and time: 06/06/2025 2:00 AM Age: 54 years old Clinical indication: Numbness and weakness and other: Hypertension; C/O of RT sided parasthesia with hypertension. History of CVA. ; Additional info: Prev CVA with R hemiparesis, recurred with vision issues TECHNIQUE: Imaging protocol: Computed tomographic angiography of the head with contrast. Exam focused on the arteries. 3D rendering (Not supervised by radiologist): MIP and/or 3D reconstructed images were created by the technologist. Radiation optimization: All CT scans at this facility use at least one of these dose optimization techniques: automated exposure control; mA and/or kV adjustment per patient size (includes targeted exams where dose is matched to clinical indication); or iterative reconstruction. Contrast material: OMNI 350; Contrast volume: 100 ml; Contrast route: INTRAVENOUS (IV); COMPARISON: CT angio headneck* [id number] 04/19/2023 8:34 AM RADIATION DOSE METRICS: Total DLP (mGy-cm): 1055.48 FINDINGS: ANTERIOR CIRCULATION: Right internal carotid artery: Moderate atherosclerotic stenosis of the distal petrous portion of the right internal carotid artery. Right middle cerebral artery: No occlusion or significant stenosis. No aneurysm. Right anterior cerebral artery: No occlusion or significant stenosis. No aneurysm. Left internal carotid artery: Intracranial segment is patent with no significant stenosis. No aneurysm. Left middle cerebral artery: No occlusion or significant stenosis. No aneurysm. Left anterior cerebral artery: No occlusion or significant stenosis. No aneurysm. POSTERIOR CIRCULATION: Right vertebral artery: No occlusion or significant stenosis. No aneurysm. Left vertebral artery: No occlusion or significant stenosis. No aneurysm. Basilar artery: No occlusion or significant stenosis. No aneurysm. Right posterior cerebral artery: No occlusion or significant stenosis. No aneurysm. Left posterior cerebral artery: No occlusion or significant stenosis. No aneurysm. Brain: No definite mass, mass effect, or midline shift. Cerebral ventricles: No ventriculomegaly. Bones/joints: Air debris levels noted within the bilateral maxillary sinuses with superimposed mucous retention cysts. Soft tissues: Unremarkable. PROCEDURE INFORMATION: Exam: CTA Neck With Contrast Exam date and time: 06/06/2025 2:00 AM Age: 54 years old Clinical indication: Numbness and weakness and other: Hypertension; C/O of RT sided parasthesia with hypertension. History of CVA. ; Additional info: Prev CVA with R hemiparesis, recurred with vision issues TECHNIQUE: Imaging protocol: Computed tomographic angiography of the neck with contrast. Exam focused on the cervical segments of the vasculature. 3D rendering (Not supervised by radiologist): MIP and/or 3D reconstructed images were created by the technologist. Radiation optimization: All CT scans at this facility use at least one of these dose optimization techniques: automated exposure control; mA and/or kV adjustment per patient size (includes targeted exams where dose is matched to clinical indication); or iterative reconstruction. Contrast material: OMNI 350; Contrast volume: 100 ml; Contrast route: INTRAVENOUS (IV); COMPARISON: CT angio headneck* [id number] 04/19/2023 8:34 AM RADIATION DOSE METRICS: Total DLP (mGy-cm): 1055.48 FINDINGS: Right common carotid artery: No stenosis. No dissection or occlusion. Right internal carotid artery: No stenosis of the extracranial segment. No dissection or occlusion. Right external carotid artery: No occlusion or stenosis of the origin. Left common carotid artery: No stenosis. No dissection or occlusion. Left internal carotid artery: No stenosis of the extracranial segment. No dissection or occlusion. Left external carotid artery: No occlusion or stenosis of the origin. Right vertebral artery: No stenosis. No dissection or occlusion. Left vertebral artery: No stenosis. No dissection or occlusion. Soft tissues: Known goiter. Tonsilliths are seen. Bones/joints: Diffuse degenerative change of the cervical spine with multiple foci of neural foraminal stenosis and spinal stenosis. Right-sided decompression changes of the C7 vertebral body. CT[facility] [id number] IMPRESSION: 1. No acute vascular findings. 2. Correlate sinus findings with active disease. IMPRESSION: No stenosis or occlusion. REFERENCES: NASCET CRITERIA. The degree of stenosis in the cervical segment of the internal carotid artery is based on NASCET criteria. Normal is no stenosis. Mild is less than 50% stenosis. Moderate is 50-69% stenosis. Severe is 70% to 99% stenosis. Total occlusion is no detectable patent lumen.
--- NOTE | 2025-06-06 01:46 | XRR_ITS ---
PROCEDURE INFORMATION: Exam: XR Chest Exam date and time: 06/06/2025 1:53 AM Age: 54 years old Clinical indication: Chest pressure; C/O chest pain; Additional info: Cp TECHNIQUE: Imaging protocol: Radiologic exam of the chest. Views: 1 view. COMPARISON: CT angio chest PE protcl [id number] 12/22/2021 11:17 PM FINDINGS: Lungs: Unremarkable. No consolidation. Pleural spaces: Unremarkable. No pleural effusion. No pneumothorax. Heart/Mediastinum: Unremarkable. No cardiomegaly. Bones/joints: Unremarkable. XR/XR chest 1V portable [id number] IMPRESSION: No acute findings.
[2025-06-06 02:02] LABS: Hematocrit 44.2 % (37-53); Hemoglobin 16.10 g/dL (11.27-16.99); Mean Corpuscular HGB Conc 36.4 g/dL (30-55); Mean Corpuscular Hemoglobin 33.3 pg (27-33); Mean Corpuscular Volume 91.5 fl (82-101); Nucleated Red Blood Cells % 0 %; Platelet Count 292 10^3/cmm (157-399); Red Blood Count 4.83 10^6/uL (3.85-5.65); White Blood Count 8.43 10^3/uL (3.29-11.43)
[2025-06-06] MEDS: iohexol 350 mg/mL 500 mL Btl (per mL) IV (02:02)
[2025-06-06 02:20] VITALS: PULSE 89; RESP 17; O2SAT 97
[2025-06-06 02:25] LABS: INR 0.90 (0.8-1.2); Prothrombin Time 12.80 SECONDS (12.1-14.9)
[2025-06-06 02:26] LABS: Troponin(5th) Baseline < 6 ng/L (0-15)
[2025-06-06 02:56] LABS: Blood Urea Nitrogen 18 mg/dL (6-20); Calcium 8.8 mg/dL (8.5-10.5); Carbon Dioxide 17 mmol/L (22-29); Chloride 103 mmol/L (98-107); Glucose 133 mg/dL (65-115); Magnesium 2.0 mg/dL (1.7-2.3); NT Pro B Type Natriuretic Pept < 36 pg/mL (0-125); Osmolality Calculated 288 mOsm/kg (285-295); Sodium 137 mmol/L (136-145); Thyroid Stimulating Hormone 1.11 uIU/mL (0.27-4.20)
[2025-06-06 02:56] LABS: Partial Thromboplastin Time 26.8 SECONDS (23.9-36.7)
[2025-06-06 02:57] LABS: Anion Gap 21.1 (5-19); Potassium 4.1 mmol/L (3.5-5.1)
[2025-06-06 03:13] LABS: CRP High Sensitivity Cardiac < 0.150 mg/dL (0.0-0.3)
--- NOTE | 2025-06-06 03:42 | W.ED.ANXIETY ---
HPI - Anxiety General: Chief Complaint: Anxiety Stated Complaint: HBSalome, Not feeling right, Has had a stroke before Time Seen by Provider: 06/06/25 01:05 History of Present Illness: Patient is a 54-year-old male with a history of ischemic stroke in April 2023, chronic hypertension, and recent sinus infection who presents with recurrent episodes of visual disturbance (eyes misaligned and wonky ), near-syncope, right-sided limb heaviness and weakness, and intermittent leg and arm shakiness. These symptoms have occurred multiple times over the past several days, most recently awakening him from sleep around 11:30 PM. He reports chills, feeling hot, and anxiety about his symptoms. He has a history of right-sided paralysis, visual issues and speech difficulty following his prior stroke, with partial recovery after therapy. Home blood pressure readings tonight were elevated-~190/100, though previously well-controlled. He denies chest pain, palpitations, or fever, but notes ongoing sinus infection for which he is currently taking Augmentin. He recently quit smoking. He was seen for symptoms similar to this here about a week ago and was put on Plavix, already takes a bASA from his prior CVA. He expresses frustration with lack of clear diagnosis and limited neurology follow-up due to loss of insurance. Associated symptoms: Deny chest pain, chills, fever(s), headache(s) or palpitations Related Data Home Medications ?Medication ?Instructions ?Recorded ?Confirmed capsicum (cayenne) 447 mg capsule 447 mg PO QAM 04/19/23 05/31/25 lakia (Zingiber officinalis) 250 250 mg PO QAM 04/19/23 05/31/25 mg capsule (lakia extract) apple cider vinegar 600 mg capsule mg PO DAILY 04/27/25 05/31/25 Previous Rx's ?Medication ?Instructions ?Recorded amlodipine 10 mg tablet 10 mg PO DAILY #90 tabs 04/27/25 amoxicillin 875 mg-potassium 1 tab PO BID #20 tabs 05/28/25 clavulanate 125 mg tablet aspirin 81 mg tablet,delayed 81 mg PO DAILY #30 tabs 05/28/25 release clopidogrel 75 mg tablet 75 mg PO DAILY #30 tabs 05/31/25 baclofen 10 mg tablet 10 mg PO TID #30 tabs 06/06/25 Allergies Allergy/AdvReac Type Severity Reaction Status Date / Time No Known Allergies Allergy Verified 05/31/25 15:17 Review of Systems General: Reports: 10 or more systems reviewed and unremarkable except in HPI and below Const: Reports: fatigue; Denies: fever(s) or chills Eyes: Reports: change in vision; Denies: eye discharge ENMT: Reports: sinus pain Card: Denies: chest pain, palpitations or swelling of feet/ankles Resp: Denies: dyspnea or productive cough GI: Denies: abdominal pain or diarrhea : Denies: difficulty urinating Musc: Reports: joint stiffness and muscle cramps; Denies: neck pain or back pain Skin/Breast: Denies: rash or jaundice Neuro: Reports: weakness in extremities; Denies: headache(s) or numbness in extremities Remigio/Lymph: Denies: easy bruising or easy bleeding PFSH ED PFSH: Medical History (Updated 06/06/25 @ 03:43 by Daniel Manzanares DO) ACL injury tear right and left knees Anxiety and depression Essential (primary) hypertension Environmental and seasonal allergies Surgical History History of neck surgery Scwannoma H/O wrist surgery right wrist 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 Family History Other Cancer Hypertension Denies family history of Diabetes Dementia Stroke Social History Smoking and tobacco/nicotine status: current every day tobacco/nicotine user cigarettes Second hand smoke exposure: No Alcohol intake: current Alcohol intake frequency: 0-2 Drinks per Day Alcohol type: beer Substance/Drug Use: never Adopted: No Caregiver/support person: No Lives independently: Yes Household members: none Housing: Other Marital status: Single Number of children: 0 service: No Current occupational status: employed Do you think of yourself as: Straight/Heterosexual Current gender identity: Male Physical Exam Narrative: EXAM NARRATIVE: Patient overall well-appearing, afebrile and vital signs stable on arrival, no acute distress. head normocephalic, PERRL, all visual mascorro grossly intact, no proptosis, no scleral injection, mild ethmoidal and frontal sinus ttp, moist mucous membranes, no cervical LAD. breathing comfortably on RA, saturating well, clear BL and no adventitious breath sounds, able to speak in full sentences without getting SOB, no signs of respiratory distress. NSR with no murmurs, no leg swelling, 2+ pulses throughout, good cap refill. Abdomen soft, nontender, nondistended, no localizing or peritonitic signs, no overlying skin changes, no CVA ttp. 4 extremities without apparent deformity or injury. GCS 15, AAOx4, able to answer questions and follow commands appropriately, CN 2-12 intact, finger to nose intact BL, RUE and RLE with 4/5 strength, preserved sensation but subjectively decreased (reportedly baseline), no drift, 5/5 on left. able to ambulate without ataxia. Normal mood and affect. Course Vital Signs: Vital signs: Vital Signs Temperature 99 F 06/06/25 01:06 Pulse Rate 81 06/06/25 04:00 Respiratory Rate 18 06/06/25 04:00 Blood Pressure 149/92 06/06/25 04:00 Pulse Oximetry 95 06/06/25 04:00 MDM - Anxiety Medical Decision Making -ddx: CVA, TIA, Recrudescence, muscle spasticity, cramps, rhabdo, MAVERICK, sinusitis, HTN urgency vs emergency. -with patients subjective worsening of symptoms in his prior CVA distributions but outside of stroke alert window, presentation for similiar prior in the week, new CTA HN ordered to evaluate for any new ischemic etiology, this was negative for any new ischemic process, bleed, or other cocncerning pathology, did call for possible worsening of his sinusitis, but clinically, states his symptoms are much better, afebrile and feels like congested, pain, in the middle of his Augmentin course so dont consider this a treatment failure and will have him continue to finish off his abx course, but the active infection could be a cause for his recrudescence of prior stroke symtoms. otherwise ED pitts reassuring with negative and flat troponins, no ischemic changes on EKG, CXR without infiltrate, cardiomegaly, effusions or PTX. the worst thing he seemed to be affected by was the spasticity/cramps of his R leg, he did got moderate improvement with Baclofen, offered him admission for a possible MRI and to have Neurology consulted, but will him feeling better, a negative CTAHN and his BP staying down, he felt reassured and was comfortable to be dc'd home and have outpatient fu, has strong support at home in his and dc'd in stable condition with a trial of Baclofen and to fu closely outpatient with Neuro and his PCP for further risk factor management, strict return precautions given. Lab Data 06/06/25 01:54 06/06/25 02:21 Radiology Impressions Head/Neck CTA 06/06/25 01:44 IMPRESSION: 1. No acute vascular findings. 2. Correlate sinus findings with active disease. IMPRESSION: No stenosis or occlusion. REFERENCES: NASCET CRITERIA. The degree of stenosis in the cervical segment of the internal carotid artery is based on NASCET criteria. Normal is no stenosis. Mild is less than 50% stenosis. Moderate is 50-69% stenosis. Severe is 70% to 99% stenosis. Total occlusion is no detectable patent lumen. Chest X-Ray 06/06/25 01:46 IMPRESSION: No acute findings. Laboratory Results WBC 8.43 10^3/uL (3.29-11.43) 06/06/25 01:54 RBC 4.83 10^6/uL (3.85-5.65) 06/06/25 01:54 Hgb 16.10 g/dL (11.27-16.99) 06/06/25 01:54 Hct 44.2 % (37-53) 06/06/25 01:54 MCV 91.5 fl (82-101) 06/06/25 01:54 MCH 33.3 pg (27-33) H 06/06/25 01:54 MCHC 36.4 g/dL (30-55) 06/06/25 01:54 RDW 11.6 % (12.1-15.1) L 06/06/25 01:54 Plt Count 292 10^3/cmm (157-399) 06/06/25 01:54 MPV 8.9 fL (7.4-10.4) 06/06/25 01:54 Neut % (Auto) 50.0 % 06/06/25 01:54 Lymph % (Auto) 34.3 % 06/06/25 01:54 [place] % (Auto) 9.7 % 06/06/25 01:54 Eos % (Auto) 4.6 % 06/06/25 01:54 Baso % (Auto) 0.7 % 06/06/25 01:54 Neut # (Auto) 4.21 10^3/uL (1.8-7.7) 06/06/25 01:54 Lymph # (Auto) 2.9 10^3/uL (0.8-4.8) 06/06/25 01:54 [place] # (Auto) 0.8 10^3/uL (0.2-0.9) 06/06/25 01:54 Eos # (Auto) 0.4 10^3/uL (0.0-0.8) 06/06/25 01:54 Baso # (Auto) 0.1 10^3/uL (0.0-0.1) 06/06/25 01:54 Nucleated RBC % (auto) 0 % 06/06/25 01:54 Nucleated RBCs # 0.0 /100WBC 06/06/25 01:54 PT 12.80 SECONDS (12.1-14.9) 06/06/25 01:54 INR 0.90 (0.8-1.2) 06/06/25 01:54 APTT 26.8 SECONDS (23.9-36.7) 06/06/25 01:54 Sodium 137 mmol/L (136-145) 06/06/25 02:21 Potassium 4.1 mmol/L (3.5-5.1) 06/06/25 02:21 Chloride 103 mmol/L (98-107) 06/06/25 02:21 Carbon Dioxide 17 mmol/L (22-29) L 06/06/25 02:21 Anion Gap 21.1 (5-19) H 06/06/25 02:21 BUN 18 mg/dL (6-20) 06/06/25 02:21 Creatinine 0.8 mg/dL (0.7-1.2) 06/06/25 02:21 GFR Calculation 100.7 mL/min (90-130) 06/06/25 02:21 Glucose 133 mg/dL (65-115) H 06/06/25 02:21 Calculated Osmolality 288 mOsm/kg (285-295) 06/06/25 02:21 Calcium 8.8 mg/dL (8.5-10.5) 06/06/25 02:21 Phosphorus 2.5 mg/dL (2.5-4.5) 06/06/25 02:21 Magnesium 2.0 mg/dL (1.7-2.3) 06/06/25 02:21 Creatine Kinase 7 U/L (39-308) L 06/06/25 02:21 Troponin T Baseline < 6 ng/L (0-15) 06/06/25 01:54 C-React Prot High Sens < 0.150 mg/dL (0.0-0.3) 06/06/25 02:21 NT-Pro-B Natriuret Pep < 36 pg/mL (0-125) 06/06/25 02:21 TSH 1.11 uIU/mL (0.27-4.20) 06/06/25 02:21 All radiology interpretation(s) finalized by discharge Discharge Plan Discharge Patient Disposition: Home Clinical Impression: Muscle spasm of right lower extremity, History of cerebrovascular accident (CVA) greater than eight weeks in the past, Hypertension Condition: Stable Prescriptions: New baclofen 10 mg tablet 10 mg PO TID Qty: 30 0RF No Action apple cider vinegar 600 mg capsule PO DAILY amlodipine 10 mg tablet 10 mg PO DAILY Qty: 90 1RF clopidogrel 75 mg tablet 75 mg PO DAILY Qty: 30 5RF capsicum (cayenne) 447 mg Capsule 447 mg PO QAM lakia extract 250 mg Capsule 250 mg PO QAM aspirin 81 mg tablet,delayed release (DR/EC) 81 mg PO DAILY Qty: 30 0RF amoxicillin-pot clavulanate 875-125 mg tablet 1 tab PO BID Qty: 20 0RF Discharge Orders: Discharge ED (Routine); Ordered 06/06/25 Ordered By: Daniel Manzanares Referrals: Kendrick Lilly MD [Physician, Cardiology] - 4-7 days Discharge Diet: Usual diet Discharge Activity: Resume usual activity Patient Instructions: Opioid Safety, Pain Management, Patient Portal & Todd Instructions Activity Restrictions/Additional Instructions: You were seen for your high blood pressure, leg cramping, and feeling off, you were evaluated with labs, EKG and CT imaging of your head which was ultimately reassuring for no stroke, cardiac event or other emergent condition today. For your leg cramping/spasms, trial using the baclofen 10 mg every 8 hours as needed. For further investigation of your symptoms, he will be referred to the web content director office, if they do not contact you within a week, call the phone number listed above for an initial evaluation, because of your previous stroke, it would be a good idea to have the need for stress testing and other things evaluated by them. Continue to take your other medications as prescribed. Return to the ED with severe worsening of her symptoms, fevers, episodes of passing out, severe chest pains, difficulties breathing, any other emergent concerns. Print Language: Albanian Coding Level of Care Code ED Digital Solution Architect for Kamila Crawley
[2025-06-06 04:00] VITALS: BP 149/92; PULSE 81; RESP 18; O2SAT 95
== END 2025-06-06 04:01 | disposition home or self-care (01) ==
PROVIDERS: Emergency Provider Student in an Organized Health Care Education/Training Program; PCP Family Medicine
DX: M62.838 Other muscle spasm (principal); I10 Essential (primary) hypertension; Z86.73 Personal history of transient ischemic attack (TIA), and cerebral infarction without residual deficits; Z79.02 Long term (current) use of antithrombotics/antiplatelets; Z79.82 Long term (current) use of aspirin; F17.210 Nicotine dependence, cigarettes, uncomplicated
CPT/HCPCS: 36415; 70496; 70498; 71045; 80048; 82550; 83735; 83880; 84100; 84443; 84484; 85025; 85610; 85730; 86141; 93005; 99285

== ENCOUNTER 2025-06-16 22:04 | Emergency (ER) | payer SELFPAY ==
--- NOTE | 2025-06-16 22:00 | ECG_ITS ---
[facility] Test Date: 2025-06-16 Pat Name: [place] [employer] Department: Room: Gender: Male Developer Advocate: : 1970 Requested By: Connor Antonio Order Number: [id number] Aj MD: Nelly Dorado M.D. Measurements Intervals [place] Rate: 98 P: 50 MN: 146 QRS: 35 QRSD: 88 T: 38 QT: 330 QTc: 423 Interpretive Statements SINUS RHYTHM Compared to ECG 06/06/2025 01:11:20 No significant changes Electronically Signed On 06-18-2025 19:04:33 LEVEL VIAL CURVATURE GAUGER by Nelly Dorado M.D. [email or web address]
[2025-06-16 22:15] VITALS: BP 165/88; PULSE 91; RESP 16; TEMP 36.4; O2SAT 98; BMI 30.7
== END 2025-06-16 23:08 | disposition left against medical advice (07) ==
LOC: ER 22:14
PROVIDERS: Emergency Provider Family Medicine; PCP Family Medicine
DX: Z01.89 Encounter for other specified special examinations (principal); Z53.21 Procedure and treatment not carried out due to patient leaving prior to being seen by health care provider
CPT/HCPCS: 93005